=== PATIENT | male | born 1970 | race Caucasian/White ===

== ENCOUNTER → 2017-11-06 | Outpatient (CLI) | payer MEDICAID ==
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
== END ==
LOC: RAD 12:31
PROVIDERS: ATTEND Internal Medicine
DX: M54.40 Lumbago with sciatica, unspecified side (principal); M54.2 Cervicalgia
CPT/HCPCS: 72050; 72110

== ENCOUNTER 2018-03-31 17:59 | Emergency (ER) | payer MEDICAID ==
--- NOTE | 2018-03-31 20:44 | RADIOLOGY REPORT (SQ) ---
EXAM DESCRIPTION: L SPINE WHOLE COMPLETED DATE/TIME: 03/31/2018 8:36 pm REASON FOR STUDY: neck pain/back pain worsening, popping, n/t COMPARISON: 11/06/2017. NUMBER OF VIEWS: Five views including obliques. TECHNIQUE: AP, lateral, oblique, and sacral radiographic images acquired of the lumbar spine. LIMITATIONS: None. FINDINGS: MINERALIZATION: Normal. SEGMENTATION: Normal. No transitional anatomy. ALIGNMENT: Normal. VERTEBRAE: Maintained height. No fracture or worrisome bone lesion. DISCS: Preserved height. No significant osteophytes or end plate irregularity. POSTERIOR ELEMENTS: Pedicles and facets are intact. No pars defect or posterior arch defects. HARDWARE: None in the spine. PARASPINAL SOFT TISSUES: Normal. PELVIS: Intact as visualized. No fractures or worrisome bone lesions. SI joints intact. OTHER: No other significant finding. IMPRESSION: NORMAL 5 VIEW LUMBAR SPINE. TECHNICAL DOCUMENTATION: JOB ID: [id number] [employer]- All Rights Reserved Reading location - IP/workstation name: [email or web address]
--- NOTE | 2018-03-31 21:05 | RADIOLOGY REPORT (SQ) ---
EXAM DESCRIPTION: CT CERVICAL SPINE WITHOUT COMPLETED DATE/TIME: 03/31/2018 8:52 pm REASON FOR STUDY: neck pain/back pain worsening, popping, n/t COMPARISON: None. TECHNIQUE: Axial images acquired through the cervical spine without intravenous contrast. Images re viewed with lung, soft tissue and bone windows. Reconstructed coronal and sagittal MPR images review ed. Images stored on PACS. All CT scanners at this facility use dose modulation, iterative reconstruction, and/or weight based d osing when appropriate to reduce radiation dose to as low as reasonably achievable (ALARA). [facility]: Dose Right [facility]: CareDose [facility]: Dose Right [facility]: Teradose 4D [facility]: Smart [employer] Mobile RADIATION DOSE: CT Rad equipment meets quality standard of care and radiation dose reduction techniq ues were employed. CTDIvol: 18.1 mGy. DLP: 434 mGy-cm. mGy. LIMITATIONS: None. FINDINGS: ALIGNMENT: Anatomic. MINERALIZATION: Normal. VERTEBRAL BODIES: No fractures or dislocation. DISCS: No significant disc disease. FACETS, LATERAL MASSES, POSTERIOR ELEMENTS: No fractures. No dislocation. No acute findings. HARDWARE: None in the spine. VISUALIZED RIBS: No fractures. LUNG APICES AND SOFT TISSUES: No significant or acute findings. OTHER: No other significant finding. IMPRESSION: NO ACUTE OR SIGNIFICANT FINDINGS IN THE CERVICAL SPINE. TECHNICAL DOCUMENTATION: JOB ID: [id number] Quality ID # [id number]: Final reports with documentation of one or more dose reduction techniques (e.g., Au tomated exposure control, adjustment of the mA and/or kV according to patient size, use of iterative reconstruction technique) 2010 [employer]- All Rights Reserved Reading location - IP/workstation name: [email or web address]
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
[2018-03-31 21:47] LABS: ABSOLUTE BASOPHILS # (AUTO) 0.1 10^3/uL (0.0-0.2); ABSOLUTE EOSINOPHILS # (AUTO) 0.3 10^3/uL (0.0-0.6); ABSOLUTE LYMPHOCYTES (AUTO) 1.6 10^3/uL (0.5-4.7); ABSOLUTE MONOCYTES (AUTO) 0.4 10^3/uL (0.1-1.4); ABSOLUTE NEUT (AUTO) 2.8 10^3/uL (1.7-8.2); BASOPHILS % (AUTO) 1.1 % (0-2); EOSINOPHILS % (AUTO) 5.2 % (0-6); HEMATOCRIT 32.7 % (37.9-51.0); HEMOGLOBIN 11.6 g/dL (13.5-17.0); MEAN CORPUSCULAR HGB CONC 35.5 g/dL (32.0-36.0); MEAN CORPUSCULAR VOLUME 93 fl (80-97); MONOCYTES % (AUTO) 7.6 % (3-13); PLATELET COUNT 209 10^3/uL (150-450); RED BLOOD COUNT 3.52 10^6/uL (4.35-5.55); RED CELL DISTRIBUTION WIDTH 14.5 % (11.5-14.0); SEGMENTED NEUTROPHILS % (AUTO) 55.1 % (42-78); TOTAL CELLS COUNTED % (AUTO) 100 %; WHITE BLOOD COUNT 5.1 10^3/uL (4.0-10.5)
[2018-03-31 22:05] LABS: ANION GAP 11 (5-19); BLOOD UREA NITROGEN 11 mg/dL (7-20); CALCIUM 9.1 mg/dL (8.4-10.2); CARBON DIOXIDE 26 mmol/L (22-30); CHLORIDE 105 mmol/L (98-107); GLUCOSE 81 mg/dL (75-110)
[2018-03-31 22:43] VITALS: BP 138/86
== END 2018-03-31 22:42 | disposition home or self-care (01) ==
LOC: ER 17:59
DX: G89.29 Other chronic pain (principal); M54.5 Low back pain; M54.2 Cervicalgia; R20.0 Anesthesia of skin; R20.2 Paresthesia of skin; I10 Essential (primary) hypertension
CPT/HCPCS: 36415; 72110; 72125; 80048; 85025; 99284

== ENCOUNTER 2018-04-26 19:51 | Emergency (ER) | payer MEDICAID ==
[2018-04-26 20:16] VITALS: BP 143/86
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
== END 2018-04-26 21:31 | disposition home or self-care (01) ==
LOC: ER 19:51
DX: S61.452A Open bite of left hand, initial encounter (principal); S61.451A Open bite of right hand, initial encounter; S51.852A Open bite of left forearm, initial encounter; S51.851A Open bite of right forearm, initial encounter; W54.0XXA Bitten by dog, initial encounter; Y93.89 Activity, other specified; F17.200 Nicotine dependence, unspecified, uncomplicated; I10 Essential (primary) hypertension
CPT/HCPCS: 99283

== ENCOUNTER 2019-05-19 08:33 | Inpatient (IN) | payer MEDICAID ==
[2019-05-19] MEDS ORDERED: NORMAL SALINE 1000 ML 1,000 ML IV ONE ×2 (09:20→11:35)
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
[2019-05-19 09:58] LABS: ALBUMIN 5.1 g/dL (3.5-5.0); ALKALINE PHOSPHATASE 75 U/L (38-126); ASPARTATE AMINO TRANSFERASE 49 U/L (17-59); BILIRUBIN,DIRECT 0.2 mg/dL (0.0-0.4); BILIRUBIN,TOTAL 0.9 mg/dL (0.2-1.3); BLOOD UREA NITROGEN 10 mg/dL (7-20); CALCIUM 9.4 mg/dL (8.4-10.2); CARBON DIOXIDE 24 mmol/L (22-30); CHLORIDE 80 mmol/L (98-107); CREATINE KINASE 174 U/L (55-170); GLUCOSE 141 mg/dL (75-110); POTASSIUM 3.5 mmol/L (3.6-5.0); TOTAL PROTEIN 7.8 g/dL (6.3-8.2)
[2019-05-19 10:02] LABS: ABSOLUTE LYMPHOCYTES (AUTO) 0.7 10^3/uL (0.5-4.7); ABSOLUTE MONOCYTES (AUTO) 0.7 10^3/uL (0.1-1.4); ACETAMINOPHEN < 10 ug/mL (10-30); ALCOHOL < 10 mg/dL (NONE DETECTED); BASOPHILS % (AUTO) 0.2 % (0-2); EOSINOPHILS % (AUTO) 0.1 % (0-6); HEMATOCRIT 37.4 % (37.9-51.0); HEMOGLOBIN 14.2 g/dL (13.5-17.0); LYMPHOCYTES % (AUTO) 11.2 % (13-45); MEAN CORPUSCULAR HEMOGLOBIN 32.6 pg (27.0-33.4); MEAN CORPUSCULAR VOLUME 86 fl (80-97); MONOCYTES % (AUTO) 10.3 % (3-13); PLATELET COUNT 293 10^3/uL (150-450); RED BLOOD COUNT 4.37 10^6/uL (4.35-5.55); RED CELL DISTRIBUTION WIDTH 12.8 % (11.5-14.0); SALICYLATE < 1.0 mg/dL (2.0-20.0); SEGMENTED NEUTROPHILS % (AUTO) 78.2 % (42-78); TOTAL CELLS COUNTED % (AUTO) 100 %; WHITE BLOOD COUNT 6.5 10^3/uL (4.0-10.5)
[2019-05-19 10:07] LABS: ANION GAP 16 (5-19)
--- NOTE | 2019-05-19 10:10 | RADIOLOGY REPORT (SQ) ---
EXAM DESCRIPTION: CHEST SINGLE VIEW COMPLETED DATE/TIME: 05/19/2019 10:01 am REASON FOR STUDY: CP AMS COMPARISON: 05/01/2016 NUMBER OF VIEWS: One view. TECHNIQUE: Single frontal radiographic view of the chest acquired. LIMITATIONS: None. FINDINGS: LUNGS AND PLEURA: No opacities, masses or pneumothorax. No pleural effusion. MEDIASTINUM AND HILAR STRUCTURES: No masses. Contour normal. HEART AND VASCULAR STRUCTURES: Heart normal in size. Normal vasculature. BONES: There chronic upper left rib fractures noted. HARDWARE: None in the chest. OTHER: No other significant finding. IMPRESSION: NO SIGNIFICANT RADIOGRAPHIC FINDING IN THE CHEST. TECHNICAL DOCUMENTATION: JOB ID: [id number] [employer]- All Rights Reserved Reading location - IP/workstation name: [email or web address]
--- NOTE | 2019-05-19 10:29 | RADIOLOGY REPORT (SQ) ---
EXAM DESCRIPTION: CT HEAD WITHOUT COMPLETED DATE/TIME: 05/19/2019 10:16 am REASON FOR STUDY: CP AMS COMPARISON: 12/16/2015 TECHNIQUE: Axial images acquired through the brain without intravenous contrast. Images reviewed wi th bone, brain and subdural windows. Additional sagittal and coronal reconstructions were generated. Images stored on PACS. All CT scanners at this facility use dose modulation, iterative reconstruction, and/or weight based d osing when appropriate to reduce radiation dose to as low as reasonably achievable (ALARA). [facility]: Dose Right [facility]: CareDose [facility]: Dose Right [facility]: Teradose 4D [facility]: CelluComp RADIATION DOSE: CT Rad equipment meets quality standard of care and radiation dose reduction techniq ues were employed. CTDIvol: 53.2 mGy. DLP: 1017 mGy-cm. mGy. LIMITATIONS: None. FINDINGS: VENTRICLES: Normal size and contour. CEREBRUM: No masses. No hemorrhage. No midline shift. No evidence for acute infarction. Normal gra y/white matter differentiation. No areas of low density in the white matter. CEREBELLUM: No masses. No hemorrhage. No alteration of density. No evidence for acute infarction. EXTRAAXIAL SPACES: No fluid collections. No masses. ORBITS AND GLOBE: No intra- or extraconal masses. Normal contour of globe without masses. CALVARIUM: No fracture. PARANASAL SINUSES: No fluid or mucosal thickening. SOFT TISSUES: No mass or hematoma. OTHER: No other significant finding. IMPRESSION: NORMAL BRAIN CT WITHOUT CONTRAST. EVIDENCE OF ACUTE STROKE: NO. COMMENT: Quality ID # [id number]: Final reports with documentation of one or more dose reduction techniques (e.g., Automated exposure control, adjustment of the mA and/or kV according to patient size, use of iterative reconstruction technique) TECHNICAL DOCUMENTATION: JOB ID: [id number] [employer] All Rights Reserved Reading location - IP/workstation name: [email or web address]
[2019-05-19 10:37] LABS: APPEARANCE,URINE CLEAR; BILIRUBIN,URINE NEGATIVE (NEGATIVE); COLOR,URINE STRAW; GLUCOSE, URINE 150 mg/dL (NEGATIVE); KETONES,URINE NEGATIVE (NEGATIVE); LEUKOCYTE ESTERASE,URINE NEGATIVE (NEGATIVE); NITRITE,URINE NEGATIVE (NEGATIVE); PROTEIN,URINE NEGATIVE (NEGATIVE); URINE SPECIFIC GRAVITY 1.004; UROBILINOGEN,URINE NEGATIVE mg/dL (<2.0)
[2019-05-19 10:55] LABS: URINE AMPHETAMINES SCREEN NEGATIVE; URINE BARBITURATES SCREEN NEGATIVE; URINE BENZODIAZEPINES SCREEN UNCONFIRMED POSITIVE; URINE COCAINE SCREEN NEGATIVE; URINE MARIJUANA (THC) SCREEN NEGATIVE; URINE METHADONE SCREEN NEGATIVE; URINE PHENCYCLIDINE SCREEN NEGATIVE
[2019-05-19] MEDS ORDERED: POTASSIUM CHLORIDE 10 MEQ CAPSULE.ER PO ONE (11:39)
[2019-05-19] MEDS ORDERED: LORAZEPAM INJ 2 MG/1 ML VIAL IV ONE (11:41)
[2019-05-19] MEDS ORDERED: MAG HYDROX/AL HYDROX/SIMETH SUSP 30 ML UDCUP PO PRN (12:20)
[2019-05-19] MEDS ORDERED: ONDANSETRON HCL INJ/PF 4 MG/2 ML SDV IV PRN (12:20)
[2019-05-19] MEDS ORDERED: MAGNESIUM HYDROXIDE SUSP 30 ML UDCUP PO PRN (12:20)
[2019-05-19] MEDS ORDERED: IPRATROPIUM/ALBUTEROL 0.5-2.5 MG/3 ML AMPUL NEB PRN (12:20)
[2019-05-19] MEDS ORDERED: PROMETHAZINE HCL INJ 25 MG/1 ML VIAL IV PRN (12:20)
[2019-05-19] MEDS ORDERED: ACETAMINOPHEN 325 MG TABLET PO PRN (12:20)
[2019-05-19] MEDS ORDERED: (PENDING PHARMACY ID) (Oxycodone Hcl [Oxycodone Hcl 10 Mg Tablet] 5 MG) PO PRN (15:33)
[2019-05-19] MEDS ORDERED: OXYCODONE-ACETAMINOPHEN 5-325 MG TABLET PO PRN (15:37)
[2019-05-19 16:35] LABS: ANION GAP 11 (5-19); BLOOD UREA NITROGEN 8 mg/dL (7-20); CALCIUM 8.8 mg/dL (8.4-10.2); CARBON DIOXIDE 24 mmol/L (22-30); CHLORIDE 92 mmol/L (98-107); GLUCOSE 112 mg/dL (75-110); POTASSIUM 3.4 mmol/L (3.6-5.0)
[2019-05-19] MEDS ORDERED: HYDRALAZINE HCL INJ/PF 20 MG/1 ML SDV IV PRN (17:51)
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
[2019-05-19] MEDS ORDERED: NORMAL SALINE 1000 ML 1,000 ML with POTASSIUM CHLORIDE 20 MEQ, MAGNESIUM SULFATE 8 MEQ,... IV SCH ×5 (18:00)
[2019-05-19] MEDS: HEPARIN SOD (PORCINE) 5,000 UNIT/ML 1 ML VIAL SUBCUT SCH ×2 (18:11→22:25)
[2019-05-19] MEDS: SERTRALINE HCL 50 MG TABLET PO SCH (18:11)
[2019-05-19] MEDS: DIAZEPAM 5 MG TABLET PO SCH ×2 (18:11→23:55)
[2019-05-19 20:25] LABS: ANION GAP 12 (5-19); BLOOD UREA NITROGEN 7 mg/dL (7-20); CALCIUM 8.9 mg/dL (8.4-10.2); CARBON DIOXIDE 23 mmol/L (22-30); CHLORIDE 93 mmol/L (98-107); GLUCOSE 91 mg/dL (75-110); POTASSIUM 3.6 mmol/L (3.6-5.0)
--- NOTE | 2019-05-19 20:53 | EKG REPORT ---
SEVERITY:- NORMAL ECG - SINUS RHYTHM : Confirmed by: Simran Huston MD 19-May-2019 20:52:44
[2019-05-19] MEDS: FAMOTIDINE 20 MG TABLET PO SCH (22:25)
[2019-05-19] MEDS: LORAZEPAM INJ 2 MG/1 ML VIAL IV PRN (22:25)
[2019-05-20 01:30] LABS: ANION GAP 9 (5-19); BLOOD UREA NITROGEN 10 mg/dL (7-20); CALCIUM 8.3 mg/dL (8.4-10.2); CARBON DIOXIDE 21 mmol/L (22-30); CHLORIDE 99 mmol/L (98-107); GLUCOSE 103 mg/dL (75-110); POTASSIUM 3.7 mmol/L (3.6-5.0)
[2019-05-20 05:58] LABS: ANION GAP 9 (5-19); BLOOD UREA NITROGEN 10 mg/dL (7-20); CALCIUM 8.5 mg/dL (8.4-10.2); CARBON DIOXIDE 22 mmol/L (22-30); CHLORIDE 99 mmol/L (98-107); GLUCOSE 100 mg/dL (75-110); POTASSIUM 3.8 mmol/L (3.6-5.0)
[2019-05-20 06:11] LABS: HEMATOCRIT 32.7 % (37.9-51.0); HEMOGLOBIN 12.3 g/dL (13.5-17.0); MEAN CORPUSCULAR HEMOGLOBIN 32.5 pg (27.0-33.4); MEAN CORPUSCULAR HGB CONC 37.6 g/dL (32.0-36.0); MEAN CORPUSCULAR VOLUME 86 fl (80-97); PLATELET COUNT 250 10^3/uL (150-450); RED BLOOD COUNT 3.79 10^6/uL (4.35-5.55); RED CELL DISTRIBUTION WIDTH 12.8 % (11.5-14.0)
[2019-05-20] MEDS: HEPARIN SOD (PORCINE) 5,000 UNIT/ML 1 ML VIAL SUBCUT SCH ×3 (06:23→21:35)
[2019-05-20] MEDS: DIAZEPAM 5 MG TABLET PO SCH ×3 (06:23→17:19)
[2019-05-20] MEDS: SERTRALINE HCL 50 MG TABLET PO SCH (09:27)
[2019-05-20] MEDS: NICOTINE 14 MG/24 HR PATCH.TD24 TD SCH (09:27)
[2019-05-20] MEDS: DOCUSATE SODIUM 100 MG CAPSULE PO SCH (09:27)
[2019-05-20] MEDS: HYDROCHLOROTHIAZIDE 25 MG TABLET PO SCH (09:27)
[2019-05-20] MEDS: FAMOTIDINE 20 MG TABLET PO SCH ×2 (09:28→21:36)
[2019-05-20] MEDS: LORAZEPAM INJ 2 MG/1 ML VIAL IV PRN ×2 (09:32→21:36)
[2019-05-20] MEDS ORDERED: (PENDING PHARMACY ID) (Lisinopril/Hydrochlorothiazide [Zestoretic 20-25 Mg Tablet] 1 TAB) PO SCH (10:00)
[2019-05-20] MEDS ORDERED: LISINOPRIL 10 MG TABLET PO SCH (10:00)
[2019-05-20] MEDS: THIAMINE HCL 100 MG TABLET PO SCH (11:20)
--- NOTE | 2019-05-20 12:04 | PDOC PROGRESS REPORT ---
Subjective Progress Note for:: 05/20/19 Reason For Visit: JOSE ROBERTO TRAVIS is a 48 year old male with a past medical history of alcoholism, opiate dependent chronic pain, remote TBI who presented to the emergency department today with a complaint of several days of altered mental status and intermittent chest pain without associated symptoms, aggravating or alleviating factors. During my assessment, the patient is fatigued, forgetful and unable to provide any additional past medical history; frequently references his as a resource, however, she is not present at this time. Evaluation in the emergency department revealed Hypertension (144/103) but otherwise normal vital signs, unremarkable CBC, urinalysis, and toxicology. However chemistry reveals hyponatremia (NA 120.3), mild hypokalemia (3.5), benig n head CT, chest x-ray, and NSR by EKG. Patient has received 2 L NS boluses and is referred to the hospitalist service for the admission and management of the above stated complaints and findings. 05/20/2019. No acute events overnight. Patient alert oriented x3, cooperative with physical examination, denies any anxiety, auditory or visual hallucination. Denies any fever, swelling, vomiting, chest pain, diarrhea, constipation or any urinary symptoms. Physical Exam Vital Signs: Temp Pulse Resp BP Pulse Ox 98.1 F 58 L 17 113/73 100 05/20/19 11:00 05/20/19 11:00 05/20/19 11:00 05/20/19 11:00 05/20/19 11:00 Intake & Output 05/19/19 05/20/19 05/21/19 06:59 06:59 06:59 Intake Total 3583 Balance 3583 Weight 70.4 kg General appearance: PRESENT: no acute distress, well-developed, well-nourished Head exam: PRESENT: atraumatic, normocephalic Eye exam: PRESENT: conjunctiva pink, EOMI, PERRLA. ABSENT: scleral icterus Ear exam: PRESENT: normal external ear exam Mouth exam: PRESENT: moist, tongue midline Neck exam: ABSENT: carotid bruit, JVD, lymphadenopathy, thyromegaly Respiratory exam: PRESENT: clear to auscultation ronnie. ABSENT: rales, rhonchi, wheezes Cardiovascular exam: PRESENT: RRR. ABSENT: diastolic murmur, rubs, systolic murmur Pulses: PRESENT: normal dorsalis pedis pul Vascular exam: PRESENT: normal capillary refill GI/Abdominal exam: PRESENT: normal bowel sounds, soft. ABSENT: distended, guarding, mass, organolmegaly, rebound, tenderness Rectal exam: PRESENT: deferred Extremities exam: PRESENT: full ROM. ABSENT: calf tenderness, clubbing, pedal edema Neurological exam: PRESENT: alert, awake, oriented to person, oriented to place, oriented to time, oriented to situation, CN II-XII grossly intact. ABSENT: motor sensory deficit Psychiatric exam: PRESENT: appropriate affect, normal mood. ABSENT: homicidal ideation, suicidal ideation Skin exam: PRESENT: dry, intact, warm. ABSENT: cyanosis, rash Results Laboratory Results: 05/20/19 03:15 05/20/19 03:15 05/19/19 05/19/19 05/19/19 09:15 16:03 20:00 WBC RBC Hgb Hct MCV MCH MCHC RDW Plt Count Sodium 127.0 L 127.5 L Potassium 3.4 L 3.6 Chloride 92 L 93 L Carbon Dioxide 24 23 Anion Gap 11 12 BUN 8 7 Creatinine 0.89 1.08 Est GFR ( Amer) > 60 > 60 Glucose 112 H 91 Calcium 8.8 8.9 Magnesium 2.0 05/20/19 05/20/19 05/20/19 00:52 03:15 03:15 WBC 6.0 RBC 3.79 L Hgb 12.3 L Hct 32.7 L MCV 86 MCH 32.5 MCHC 37.6 H RDW 12.8 Plt Count 250 Sodium 128.6 L 129.8 L Potassium 3.7 3.8 Chloride 99 99 Carbon Dioxide 21 L 22 Anion Gap 9 9 BUN 10 10 Creatinine 1.03 0.95 Est GFR ( Amer) > 60 > 60 Glucose 103 100 Calcium 8.3 L 8.5 Magnesium 05/19/19 05/19/19 05/19/19 09:15 09:15 16:03 Creatine Kinase 174 H Troponin I < 0.012 < 0.012 05/19/19 20:00 Creatine Kinase Troponin I < 0.012 Impressions: Chest X-Ray 05/19/19 09:19 IMPRESSION: NO SIGNIFICANT RADIOGRAPHIC FINDING IN THE CHEST. Head CT 05/19/19 09:19 IMPRESSION: NORMAL BRAIN CT WITHOUT CONTRAST. EVIDENCE OF ACUTE STROKE: NO. Assessment and Plan - Diagnosis (1) Acute metabolic encephalopathy Is this a current diagnosis for this admission?: Yes Plan: Resolved. Due to EtOH abuse. Alert oriented x4. Received IV banana bag. Monitor for DT. Continue thiamine and folic acid. (2) Hyponatremia Is this a current diagnosis for this admission?: Yes Plan: Improving. Sodium 129 today. Likely secondary to excessive EtOH intake. Sodium on admission is 102.3. No prior history of chronic hyponatremia. Patient was provided a 2 L normal saline bolus by the ED provider. Serum sodium every 8. Seizure and fall precautions. (3) Chest pain Is this a current diagnosis for this admission?: Yes Plan: Most likely noncardiac. Could be related to chronic gastritis. Resolved. Troponins negative x3. EKG no changes. Continue PPIs. Advised on using EtOH intake. (4) Hypokalemia Is this a current diagnosis for this admission?: Yes Plan: Likely due to low p.o. intake. No acute EKG changes. Resolved. Potassium level tomorrow. Magnesium level WNL. (5) Opiate dependence Is this a current diagnosis for this admission?: Yes Plan: Continue supportive measures. Monitor for withdrawal. Restart home meds. (6) Tobacco dependence Is this a current diagnosis for this admission?: Yes Plan: Smoking cessation encouraged. Nicotine or placement therapies provided. (7) ETOH abuse Is this a current diagnosis for this admission?: Yes Plan: As per #1.
[2019-05-20] MEDS: FOLIC ACID/VITAMIN B COMP W-C CAPSULE PO SCH (17:19)
[2019-05-20] MEDS: OXYCODONE HCL IR 5 MG TABLET PO PRN (21:36)
[2019-05-21] MEDS: DIAZEPAM 5 MG TABLET PO SCH ×4 (00:52→18:38)
[2019-05-21] MEDS: HEPARIN SOD (PORCINE) 5,000 UNIT/ML 1 ML VIAL SUBCUT SCH ×3 (06:34→21:20)
[2019-05-21] MEDS: NORMAL SALINE 1000 ML 1,000 ML IV PRN ×2 (07:31→16:27)
[2019-05-21 07:45] LABS: HEMATOCRIT 33.6 % (37.9-51.0); HEMOGLOBIN 12.7 g/dL (13.5-17.0); MEAN CORPUSCULAR HEMOGLOBIN 32.8 pg (27.0-33.4); MEAN CORPUSCULAR VOLUME 87 fl (80-97); PLATELET COUNT 252 10^3/uL (150-450); RED BLOOD COUNT 3.87 10^6/uL (4.35-5.55); RED CELL DISTRIBUTION WIDTH 12.6 % (11.5-14.0); WHITE BLOOD COUNT 7.4 10^3/uL (4.0-10.5)
[2019-05-21 08:11] LABS: MEAN CORPUSCULAR HGB CONC 37.8 g/dL (32.0-36.0)
[2019-05-21] MEDS: NICOTINE 14 MG/24 HR PATCH.TD24 TD SCH (09:29)
[2019-05-21] MEDS: DOCUSATE SODIUM 100 MG CAPSULE PO SCH (09:47)
[2019-05-21] MEDS: LISINOPRIL 10 MG TABLET PO SCH (09:48)
[2019-05-21] MEDS: SERTRALINE HCL 50 MG TABLET PO SCH (09:48)
[2019-05-21] MEDS: LORAZEPAM INJ 2 MG/1 ML VIAL IV PRN ×2 (09:49→21:20)
[2019-05-21] MEDS: FAMOTIDINE 20 MG TABLET PO SCH ×2 (09:49→21:20)
[2019-05-21] MEDS: HYDROCHLOROTHIAZIDE 25 MG TABLET PO SCH (09:49)
[2019-05-21] MEDS: THIAMINE HCL 100 MG TABLET PO SCH (09:49)
[2019-05-21] MEDS: OXYCODONE HCL IR 5 MG TABLET PO PRN (15:02)
[2019-05-21] MEDS: FOLIC ACID/VITAMIN B COMP W-C CAPSULE PO SCH (15:03)
--- NOTE | 2019-05-21 15:18 | PDOC PROGRESS REPORT ---
Subjective Progress Note for:: 05/21/19 Subjective:: JOSE ROBERTO TRAVIS is a 48 year old male with a past medical history of alcoholism, opiate dependent chronic pain, remote TBI who presented to the emergency department today with a complaint of several days of altered mental status and intermittent chest pain without associated symptoms, aggravating or alleviating factors. During my assessment, the patient is fatigued, forgetful and unable to provide any additional past medical history; frequently references his as a resource, however, she is not present at this time. Evaluation in the emergency department revealed Hypertension (144/103) but otherwise normal vital signs, unremarkable CBC, urinalysis, and toxicology. However chemistry reveals hyponatremia (NA 120.3), mild hypokalemia (3.5), benign head CT, chest x-ray, and NSR by EKG. Patient has received 2 L NS boluses and is referred to the hospitalist service for the admission and management of the above stated complaints and findings. 05/20/2019. No acute events overnight. Patient alert oriented x3, cooperative with physical examination, denies any anxiety, auditory or visual hallucination. Denies any fever, swelling, vomiting, chest pain, diarrhea, constipation or any urinary symptoms. 05/21/2017. No acute events overnight. Alert oriented x3, cooperative with examination. Denies any visual or auditory hallucination. Denies any anxiety. Denies any fever, chills, nausea, vomiting, diarrhea, constipation or any urinary symptoms. Sodium level not optimized. Possible DC tomorrow. Reason For Visit: AMS, HYPONATREMIA, ETOH DEPENDENCE Physical Exam Vital Signs: Temp Pulse Resp BP Pulse Ox 98.2 F 84 20 133/80 H 96 05/21/19 12:00 05/21/19 12:00 05/21/19 12:00 05/21/19 12:00 05/21/19 08:24 Intake & Output 05/20/19 05/21/19 05/22/19 06:59 06:59 06:59 Intake Total 3583 1420 120 Output Total 0 Balance 3583 1420 120 Weight 70.4 kg 69.1 kg General appearance: PRESENT: no acute distress, well-developed, well-nourished Head exam: PRESENT: atraumatic, normocephalic Eye exam: PRESENT: conjunctiva pink, EOMI, PERRLA. ABSENT: scleral icterus Ear exam: PRESENT: normal external ear exam Mouth exam: PRESENT: moist, tongue midline Neck exam: ABSENT: carotid bruit, JVD, lymphadenopathy, thyromegaly Respiratory exam: PRESENT: clear to auscultation ronnie. ABSENT: rales, rhonchi, wheezes Cardiovascular exam: PRESENT: RRR. ABSENT: diastolic murmur, rubs, systolic murmur Pulses: PRESENT: normal dorsalis pedis pul Vascular exam: PRESENT: normal capillary refill GI/Abdominal exam: PRESENT: normal bowel sounds, soft. ABSENT: distended, guarding, mass, organolmegaly, rebound, tenderness Rectal exam: PRESENT: deferred Extremities exam: PRESENT: full ROM. ABSENT: calf tenderness, clubbing, pedal edema Neurological exam: PRESENT: alert, awake, oriented to person, oriented to place, oriented to time, oriented to situation, CN II-XII grossly intact. ABSENT: motor sensory deficit Psychiatric exam: PRESENT: appropriate affect, normal mood. ABSENT: homicidal ideation, suicidal ideation Skin exam: PRESENT: dry, intact, warm. ABSENT: cyanosis, rash Results Laboratory Results: 05/21/19 06:55 05/21/19 14:28 05/20/19 05/20/19 05/21/19 14:34 21:37 06:55 WBC 7.4 RBC 3.87 L Hgb 12.7 L Hct 33.6 L MCV 87 MCH 32.8 MCHC 37.8 H RDW 12.6 Plt Count 252 Sodium 128.6 L 128.6 L 05/21/19 05/21/19 06:55 14:28 WBC RBC Hgb Hct MCV MCH MCHC RDW Plt Count Sodium 127.3 L 129.0 L 05/19/19 05/19/19 05/19/19 09:15 09:15 16:03 Creatine Kinase 174 H Troponin I < 0.012 < 0.012 05/19/19 20:00 Creatine Kinase Troponin I < 0.012 Impressions: Chest X-Ray 05/19/19 09:19 IMPRESSION: NO SIGNIFICANT RADIOGRAPHIC FINDING IN THE CHEST. Head CT 05/19/19 09:19 IMPRESSION: NORMAL BRAIN CT WITHOUT CONTRAST. EVIDENCE OF ACUTE STROKE: NO. Assessment and Plan - Diagnosis (1) Hyponatremia Is this a current diagnosis for this admission?: Yes Plan: Improving. Not optimized. Sodium 129 today. Likely secondary to excessive EtOH intake. Sodium on admission is 102.3. No prior history of chronic hyponatremia. Patient was provided a 2 L normal saline bolus by the ED provider. Start on NS. Sodium level in a.m. If WNL will DC home. Monitor for seizures. (2) Acute metabolic encephalopathy Is this a current diagnosis for this admission?: Yes Plan: Resolved. Due to EtOH abuse. Alert oriented x4. Received IV banana bag. Monitor for DT. Continue thiamine and folic acid. (3) Chest pain Is this a current diagnosis for this admission?: Yes Plan: Resolved. Most likely noncardiac. Could be related to chronic gastritis. Resolved. Troponins negative x3. EKG no changes. Continue PPIs. Advised on using EtOH intake. (4) Hypokalemia Is this a current diagnosis for this admission?: Yes Plan: Resolved. Likely due to low p.o. intake. No acute EKG changes. Potassium level tomorrow. Magnesium level WNL. (5) Opiate dependence Is this a current diagnosis for this admission?: Yes Plan: Continue supportive measures. Monitor for withdrawal. Restart home meds. (6) Tobacco dependence Is this a current diagnosis for this admission?: Yes Plan: Smoking cessation encouraged. Nicotine or placement therapies provided. (7) ETOH abuse Is this a current diagnosis for this admission?: Yes Plan: As per #1.
[2019-05-22] MEDS: DIAZEPAM 5 MG TABLET PO SCH ×3 (00:09→12:25)
[2019-05-22] MEDS: NORMAL SALINE 1000 ML 1,000 ML IV PRN (01:00)
[2019-05-22] MEDS: HEPARIN SOD (PORCINE) 5,000 UNIT/ML 1 ML VIAL SUBCUT SCH (06:00)
[2019-05-22 06:37] LABS: HEMATOCRIT 32.5 % (37.9-51.0); HEMOGLOBIN 12.3 g/dL (13.5-17.0); MEAN CORPUSCULAR HEMOGLOBIN 33.1 pg (27.0-33.4); MEAN CORPUSCULAR VOLUME 88 fl (80-97); PLATELET COUNT 266 10^3/uL (150-450); RED BLOOD COUNT 3.71 10^6/uL (4.35-5.55); RED CELL DISTRIBUTION WIDTH 12.7 % (11.5-14.0); WHITE BLOOD COUNT 7.6 10^3/uL (4.0-10.5)
[2019-05-22 06:53] LABS: ANION GAP 10 (5-19); BLOOD UREA NITROGEN 8 mg/dL (7-20); CALCIUM 8.6 mg/dL (8.4-10.2); CARBON DIOXIDE 24 mmol/L (22-30); CHLORIDE 100 mmol/L (98-107); GLUCOSE 107 mg/dL (75-110); POTASSIUM 3.3 mmol/L (3.6-5.0)
[2019-05-22 07:31] LABS: MEAN CORPUSCULAR HGB CONC 37.8 g/dL (32.0-36.0)
[2019-05-22] MEDS ORDERED: POTASSIUM CHLORIDE 20 MEQ PACKET PO ONE (07:34)
[2019-05-22] MEDS: SERTRALINE HCL 50 MG TABLET PO SCH (09:17)
[2019-05-22] MEDS: THIAMINE HCL 100 MG TABLET PO SCH (09:17)
[2019-05-22] MEDS: LISINOPRIL 10 MG TABLET PO SCH (09:17)
[2019-05-22] MEDS: HYDROCHLOROTHIAZIDE 25 MG TABLET PO SCH (09:17)
[2019-05-22] MEDS: FAMOTIDINE 20 MG TABLET PO SCH (09:18)
[2019-05-22] MEDS: DOCUSATE SODIUM 100 MG CAPSULE PO SCH (09:18)
[2019-05-22] MEDS: NICOTINE 14 MG/24 HR PATCH.TD24 TD SCH (09:19)
[2019-05-22] MEDS: LORAZEPAM INJ 2 MG/1 ML VIAL IV PRN (09:19)
[2019-05-22 14:14] VITALS: BP 137/84
--- NOTE | 2019-05-28 11:34 | PDOC DISCHARGE SUMMARY ---
General - Admit/Disc Date/PCP Admission Date/Primary Care Provider: 05/19/19 11:53 BECK JURADO Discharge Date: 06/01/19 - Discharge Diagnosis (1) Hyponatremia Is this a current diagnosis for this admission?: Yes (2) Acute metabolic encephalopathy Is this a current diagnosis for this admission?: Yes (3) Chest pain Is this a current diagnosis for this admission?: Yes (4) Hypokalemia Is this a current diagnosis for this admission?: Yes (5) Opiate dependence Is this a current diagnosis for this admission?: Yes (6) Tobacco dependence Is this a current diagnosis for this admission?: Yes (7) ETOH abuse Is this a current diagnosis for this admission?: Yes - Additional Information Resuscitation Status: Full Code Discharge Diet: As Tolerated, Regular Discharge Activity: Activity As Tolerated Home Medications: Ibuprofen [Motrin 800 mg Tablet] 800 mg PO Q8HP PRN 05/19/19 Lisinopril/Hydrochlorothiazide [Zestoretic 20-25 mg Tablet] 1 tab PO DAILY 05/19/19 Lorazepam [Ativan 1 mg Tablet] 1 mg PO Q8HP PRN 05/19/19 Oxycodone HCl [Oxycodone HCl 10 MG Tablet] 10 mg PO Q8HP PRN 05/19/19 Sertraline HCl [Zoloft] 100 mg PO DAILY 05/19/19 Lorazepam [Ativan 0.5 mg Tablet] 0.5 mg PO BID #30 tab 05/26/19 Thiamine HCl [Thiamine 100 mg Tablet] 100 mg PO DAILY #30 tablet 05/26/19 History of Present Illness History of Present Illness: JOSE ROBERTO TRAVIS is a 48 year old male with a past medical history of alcoholism, opiate dependent chronic pain, remote TBI who presented to the emergency department today with a complaint of several days of altered mental status and intermittent chest pain without associated symptoms, aggravating or alleviating factors. During my assessment, the patient is fatigued, forgetful and unable to provide any additional past medical history; frequently references his as a resource, however, she is not present at this time. Evaluation in the emergency department revealed Hypertension (144/103) but otherwise normal vital signs, unremarkable CBC, urinalysis, and toxicology. However chemistry reveals hyponatremia (NA 120.3), mild hypokalemia (3.5), lina gn head CT, chest x-ray, and NSR by EKG. Patient has received 2 L NS boluses and is referred to the hospitalist service for the admission and management of the above stated complaints and findings Hospital Course Hospital Course: (1) Hyponatremia Resoled. Likely secondary to excessive EtOH intake and low P.O intake. Sodium on admission is 102.3. No prior history of chronic hyponatremia. Started on NS. Monitored for seizures. (2) Acute metabolic encephalopathy Resolved. Due to EtOH abuse. Alert oriented x4. Received IV banana bag. Monitor for DT. Started on thiamine and folic acid. (3) Chest pain Resolved. Most likely noncardiac. Could be related to chronic gastritis. Resolved. Troponins negative x3. EKG no changes. Started on PPIs. Advised on using EtOH intake. (4) Hypokalemia Resolved. Likely due to low p.o. intake. No acute EKG changes. Magnesium level WNL. (5) Opiate dependence Continue supportive measures. Monitor for withdrawal. Restart home meds. (6) Tobacco dependence Smoking cessation encouraged. Nicotine or placement therapies provided. (7) ETOH abuse As per #1. Physical Exam Vital Signs: Temp Pulse Resp BP Pulse Ox 98.7 F 87 16 137/84 H 97 05/22/19 14:06 05/22/19 14:06 05/22/19 14:06 05/22/19 14:06 05/22/19 14:06 General appearance: PRESENT: no acute distress, well-developed, well-nourished Head exam: PRESENT: atraumatic, normocephalic Eye exam: PRESENT: conjunctiva pink, EOMI, PERRLA. ABSENT: scleral icterus Ear exam: PRESENT: normal external ear exam Mouth exam: PRESENT: moist, tongue midline Neck exam: ABSENT: carotid bruit, JVD, lymphadenopathy, thyromegaly Respiratory exam: PRESENT: clear to auscultation ronnie. ABSENT: rales, rhonchi, wheezes Cardiovascular exam: PRESENT: RRR. ABSENT: diastolic murmur, rubs, systolic murmur Pulses: PRESENT: normal dorsalis pedis pul Vascular exam: PRESENT: normal capillary refill GI/Abdominal exam: PRESENT: normal bowel sounds, soft. ABSENT: distended, guarding, mass, organolmegaly, rebound, tenderness Rectal exam: PRESENT: deferred Extremities exam: PRESENT: full ROM. ABSENT: calf tenderness, clubbing, pedal edema Neurological exam: PRESENT: alert, awake, oriented to person, oriented to place, oriented to time, oriented to situation, CN II-XII grossly intact. ABSENT: motor sensory deficit Psychiatric exam: PRESENT: appropriate affect, normal mood. ABSENT: homicidal ideation, suicidal ideation Skin exam: PRESENT: dry, intact, warm. ABSENT: cyanosis, rash Results Laboratory Results: 05/22/19 05:55 05/22/19 12:07 05/19/19 05/19/19 05/19/19 09:15 09:15 16:03 Creatine Kinase 174 H Troponin I < 0.012 < 0.012 05/19/19 20:00 Creatine Kinase Troponin I < 0.012 Impressions: Chest X-Ray 05/19/19 09:19 IMPRESSION: NO SIGNIFICANT RADIOGRAPHIC FINDING IN THE CHEST. Head CT 05/19/19 09:19 IMPRESSION: NORMAL BRAIN CT WITHOUT CONTRAST. EVIDENCE OF ACUTE STROKE: NO. Qualifiers - * PATIENT BEING DISCHARGED WITH ANY OF THE FOLLOWING DIAGNOSIS: No VTE patient discharged on overlapping Therapy?: No Acute Heart Failure - Is this a Heart Failure Patient?: No
== END 2019-05-22 15:01 | disposition home or self-care (01) | DRG 640 ==
LOC: ER 08:33 → OBSVTOIN 11:53 → EH 11:53 → 4S 15:14
PROVIDERS: ADMIT Internal Medicine; ATTEND Internal Medicine
DX: E87.1 Hypo-osmolality and hyponatremia (principal); G93.41 Metabolic encephalopathy; F11.20 Opioid dependence, uncomplicated; F10.20 Alcohol dependence, uncomplicated; R07.9 Chest pain, unspecified; G89.4 Chronic pain syndrome; E78.00 Pure hypercholesterolemia, unspecified; I10 Essential (primary) hypertension; F17.210 Nicotine dependence, cigarettes, uncomplicated; E87.6 Hypokalemia; T40.2X5A Adverse effect of other opioids, initial encounter; Y90.0 Blood alcohol level of less than 20 mg/100 ml; Y92.9 Unspecified place or not applicable; Z87.820 Personal history of traumatic brain injury
CPT/HCPCS: 36415; 70450; 71045; 80048; 80053; 80307; 81001; 82140; 82550; 83735; 84132; 84295; 84484; 85025; 85027; 93005; 93010; 96360; 99285; J1644; J2060; J3411; J3475; J3480; J3490; J7030

== ENCOUNTER 2019-05-26 18:18 | Emergency (ER) | payer MEDICAID ==
--- NOTE | 2019-05-26 18:37 | EKG REPORT ---
SEVERITY:- ABNORMAL ECG - SINUS RHYTHM LEFT VENTRICULAR HYPERTROPHY : Confirmed by: Palmer Mehta MD 26-May-2019 18:36:36
--- NOTE | 2019-05-26 18:45 | ER Document Report ---
ED Medical Screen (RME) - General Chief Complaint: Altered Mental Status Stated Complaint: CONFUSION Time Seen by Provider: 05/26/19 18:38 Primary Care Provider: BECK JURADO MD [Primary Care Provider] - Follow up as needed Mode of Arrival: Ambulatory Information source: Patient, Relative Notes: 48-year-old male presents with altered mental status that started yesterday afternoon worsened last night. reports patient was admitted to the hospital last week for same symptoms with very low sodium. She reports she did have an appoint with Dr. Jurado later this week but was worried to wait that long. Patient is very calm answers questions but is confused to time. reports patient still drinks EtOH but not as much. Unaware of last EtOH. No other complaints such as fever vomiting diarrhea. I have greeted and performed a rapid initial assessment of this patient. A comprehensive ED assessment and evaluation of the patient, analysis of test res ults and completion of the medical decision making process will be conducted by additional ED providers. Dictation of this chart was performed using voice recognition software; therefore, there may be some unintended grammatical errors. TRAVEL OUTSIDE OF THE [place] IN LAST 30 DAYS: No - Related Data Allergies/Adverse Reactions: No Known Drug Allergies Allergy (Verified 05/26/19 18:22) Past Medical History - Social History Frequency of alcohol use: Occasional Drug Abuse: None - Past Medical History Cardiac Medical History: Reports: Hx Hypercholesterolemia, Hx Hypertension Denies: Hx Coronary Artery Disease, Hx Heart Attack Neurological Medical History: Reports: Hx Seizures - Alcohol withdrawal Renal/ Medical History: Denies: Hx Peritoneal Dialysis Psychiatric Medical History: Reports: Hx Anxiety, Hx Depression Traumatic Medical History: Reports: Hx Traumatic Brain Injury - Immunizations Hx Diphtheria, Pertussis, Tetanus Vaccination: No Physical Exam - Vital signs Vitals: Temp Pulse Resp BP Pulse Ox 98.2 F 90 18 172/96 H 97 05/26/19 18:28 05/26/19 18:28 05/26/19 18:28 05/26/19 18:28 05/26/19 18:28 Course - Vital Signs Vital signs: Temp Pulse Resp BP Pulse Ox 98.2 F 90 18 172/96 H 97 05/26/19 18:28 05/26/19 18:28 05/26/19 18:28 05/26/19 18:28 05/26/19 18:28 Doctor's Discharge - Discharge Referrals: BECK JURADO MD [Primary Care Provider] - Follow up as needed
[2019-05-26 19:10] LABS: ABSOLUTE LYMPHOCYTES (AUTO) 1.2 10^3/uL (0.5-4.7); ABSOLUTE MONOCYTES (AUTO) 0.5 10^3/uL (0.1-1.4); ABSOLUTE NEUT (AUTO) 6.3 10^3/uL (1.7-8.2); BASOPHILS % (AUTO) 0.4 % (0-2); EOSINOPHILS % (AUTO) 0.6 % (0-6); HEMATOCRIT 38.7 % (37.9-51.0); HEMOGLOBIN 14.2 g/dL (13.5-17.0); LYMPHOCYTES % (AUTO) 14.8 % (13-45); MEAN CORPUSCULAR HGB CONC 36.8 g/dL (32.0-36.0); MEAN CORPUSCULAR VOLUME 90 fl (80-97); MONOCYTES % (AUTO) 6.4 % (3-13); PLATELET COUNT 362 10^3/uL (150-450); RED BLOOD COUNT 4.31 10^6/uL (4.35-5.55); RED CELL DISTRIBUTION WIDTH 13.1 % (11.5-14.0); SEGMENTED NEUTROPHILS % (AUTO) 77.8 % (42-78); TOTAL CELLS COUNTED % (AUTO) 100 %; WHITE BLOOD COUNT 8.1 10^3/uL (4.0-10.5)
[2019-05-26 19:35] LABS: ALBUMIN 4.8 g/dL (3.5-5.0); ALKALINE PHOSPHATASE 77 U/L (38-126); ANION GAP 14 (5-19); ASPARTATE AMINO TRANSFERASE 30 U/L (17-59); BILIRUBIN,DIRECT 0.2 mg/dL (0.0-0.4); BILIRUBIN,TOTAL 0.8 mg/dL (0.2-1.3); BLOOD UREA NITROGEN 8 mg/dL (7-20); CALCIUM 9.7 mg/dL (8.4-10.2); CARBON DIOXIDE 25 mmol/L (22-30); CHLORIDE 97 mmol/L (98-107); GLUCOSE 119 mg/dL (75-110); POTASSIUM 3.4 mmol/L (3.6-5.0); TOTAL PROTEIN 7.3 g/dL (6.3-8.2)
[2019-05-26 19:37] LABS: ALCOHOL < 10 mg/dL (NONE DETECTED)
[2019-05-26] MEDS ORDERED: THIAMINE HCL 100 MG, FOLIC ACID 1 MG in NORMAL SALINE 250 ML IV ONE (19:55)
[2019-05-26] MEDS ORDERED: THIAMINE HCL 100 MG in NORMAL SALINE 50 ML IV ONE (19:55)
[2019-05-26] MEDS ORDERED: LORAZEPAM 0.5 MG TABLET PO ONE (19:57)
--- NOTE | 2019-05-26 22:14 | ER Document Report ---
ED General - General Chief Complaint: Altered Mental Status Stated Complaint: CONFUSION Time Seen by Provider: 05/26/19 18:38 Primary Care Provider: BECK JURADO MD [Primary Care Provider] - Follow up as needed Mode of Arrival: Ambulatory TRAVEL OUTSIDE OF THE [place] IN LAST 30 DAYS: No - HPI Notes: Patient is brought in by for confusion. states patient used to be an alcoholic but has not been now for several years he will only occasionally have a drink of alcohol. She states however for the last 2 to 3 days he has been confused asking questions repeatedly and not being oriented. She states he had a similar event 2 to 3 weeks ago when his sodium was low and he had to be admitted to the hospital. No recent fevers or trauma. Patient states that he does feel confused but otherwise has no complaints. There is no shortness of breath or pain anywhere. No vomiting or diarrhea. Symptoms have been mild to moderate. They have been constant. Nothing appears to make them better or worse. Patient does usually take chronic Ativan and has been out of this for 3 days now. No known radiation of the symptoms. - Related Data Allergies/Adverse Reactions: No Known Drug Allergies Allergy (Verified 05/26/19 18:22) Past Medical History - General Information source: Patient, Relative - Social History Smoking Status: Current Every Day Smoker Frequency of alcohol use: Occasional Drug Abuse: None Family History: Reviewed & Not Pertinent Patient has suicidal ideation: No Patient has homicidal ideation: No - Past Medical History Cardiac Medical History: Reports: Hx Hypercholesterolemia, Hx Hypertension Denies: Hx Coronary Artery Disease, Hx Heart Attack Neurological Medical History: Reports: Hx Seizures - Alcohol withdrawal Renal/ Medical History: Denies: Hx Peritoneal Dialysis Psychiatric Medical History: Reports: Hx Anxiety, Hx Depression Traumatic Medical History: Reports: Hx Traumatic Brain Injury - Immunizations Hx Diphtheria, Pertussis, Tetanus Vaccination: No Review of Systems - Review of Systems Constitutional: Malaise. denies: Chills, Fever Cardiovascular: denies: Chest pain, Palpitations Respiratory: denies: Cough, Short of breath Gastrointestinal: denies: Abdominal pain -: Yes All other systems reviewed and negative Physical Exam - Vital signs Vitals: Pulse Resp BP Pulse Ox 69 20 137/85 H 100 05/26/19 18:25 05/26/19 18:25 05/26/19 18:25 05/26/19 18:25 Interpretation: Normal - General General appearance: Appears well, Alert - HEENT Head: Normocephalic, Atraumatic Eyes: Normal Pupils: PERRL - Respiratory Respiratory status: No respiratory distress Chest status: Nontender Breath sounds: Normal Chest palpation: Normal - Cardiovascular Rhythm: Regular Heart sounds: Normal auscultation Murmur: No - Abdominal Inspection: Normal Distension: No distension Bowel sounds: Normal Tenderness: Nontender Organomegaly: No organomegaly - Back Back: Normal, Nontender - Extremities General upper extremity: Normal inspection, Nontender, Normal color, Normal ROM, Normal temperature General lower extremity: Normal inspection, Nontender, Normal color, Normal ROM, Normal temperature, Normal weight bearing. No: Wendi's sign - Neurological Neuro grossly intact: Yes Cognition: Confused Orientation: Disoriented to time [place] Coma Scale Eye Opening: Spontaneous [place] Coma Scale Verbal: Confused Elizabeth Coma Scale Motor: Obeys Commands Elizabeth Coma Scale Total: 14 Speech: Normal Cranial nerves: Normal Cerebellar coordination: Normal. No: Gait ataxia Motor strength normal: LUE, RUE, LLE, RLE Additional motor exam normals: Equal sld educational aide Sensory: Normal - Psychological Associated symptoms: Normal affect, Normal mood - Skin Skin Temperature: Warm Skin Moisture: Dry Skin Color: Normal Course - Re-evaluation Re-evalutation: 05/26/19 22:11 Patient reassessed just now. He is resting comfortably in the bed with no complaints. Vital signs are stable. Labs were reviewed and are unremarkable. Patient is receiving the thiamine. He can now tell me that is 2019 and he can tell me the month but says the day is the 13th. He is more oriented than arrival. I see no reason for further emergent evaluation or inpatient evaluation. I believe that he is capable of following up as an outpatient. He has no focal neurological deficits on exam. He has no neurological deficits other than some confusion. This confusion may have been possibly malingering or possibly due to some Korsakoff syndrome. I have called and spoke with the on the phone and instructed her that I feel patient needs to take thiamine orally. Needs to follow-up with his family physician and neurology. I will also restart the patient on Ativan. - Vital Signs Vital signs: Temp Pulse Resp BP Pulse Ox 98.2 F 90 27 H 140/91 H 99 05/26/19 18:28 05/26/19 18:28 05/26/19 20:01 05/26/19 20:01 05/26/19 20:01 - Laboratory Result Diagrams: 05/26/19 18:57 05/26/19 18:57 Laboratory results interpreted by me: 05/26/19 05/26/19 05/26/19 18:57 18:57 19:25 RBC 4.31 L MCHC 36.8 H Sodium 135.9 L Potassium 3.4 L Chloride 97 L Glucose 119 H Ammonia < 8.7 L Discharge - Discharge Clinical Impression: Confusion Condition: Stable Disposition: HOME, SELF-CARE Instructions: Altered Mental Status ([facility]) Additional Instructions: Please take your thiamine and ativan as instructed. Please call your primary doctor first thing in the am to arrange follow up. Please discuss neurology referral with your doctor. Prescriptions: Lorazepam [Ativan 0.5 mg Tablet] 0.5 mg PO BID #30 tab Thiamine HCl [Thiamine 100 mg Tablet] 100 mg PO DAILY #30 tablet Forms: Smoking Cessation Education Referrals: BECK JURADO MD [Primary Care Provider] - Follow up tomorrow
[2019-05-26 22:28] VITALS: BP 144/84
== END 2019-05-26 22:40 | disposition home or self-care (01) ==
LOC: ER 18:18
DX: R41.0 Disorientation, unspecified (principal); I10 Essential (primary) hypertension; F17.200 Nicotine dependence, unspecified, uncomplicated
CPT/HCPCS: 93005; 36415; 80307; 82140; 83735; 85025; 80053; 93010; J3490; J3411; J7050

== ENCOUNTER 2020-07-04 09:50 | Observation (INO) | payer MEDICAID ==
[2020-07-04] MEDS ORDERED: NORMAL SALINE 1000 ML 1,000 ML IV PRN (10:17)
[2020-07-04] MEDS ORDERED: LORAZEPAM INJ 2 MG/1 ML VIAL IV ONE (10:18)
--- NOTE | 2020-07-04 10:23 | ER Document Report ---
ED Neuro Symptoms/Deficit - General Chief Complaint: Altered Mental Status Stated Complaint: ALTERED MENTAL STATUS Time Seen by Provider: 07/04/20 10:08 Primary Care Provider: BECK JURADO MD [Primary Care Provider] - Follow up as needed Mode of Arrival: Medic Information source: Patient, Relative, Emergency Med Personnel Notes: 49-year-old male arrives by EMS after called because patient was out of Ativan for 4 days and was hallucinating reporting there was blood coming from the [place] of their house. Patient has been acting differently since the early a.m. hours. He is able to speak but is disoriented to who he is where he is at date time and situation. His Martha who works at [employer] advises she is the main breadwinner at this time because he has been out of work for several weeks. They have had to move because of financial reasons and are currently under a lot of stress. His was quite tearful when giving us the story at 1010. Both patient and smoke old Andreas menthol cigarettes. Around 1 pack/day. Patient's lactic acid was 4.6 per EMS. While in room patient advises he has no problems but is pulling on his thumb and pulling on his tubing to his blood pressure cuff. His also reports he has been unable to stand and had weakness in bilateral legs. She reports 4 years ago he was running out of his Ativan but had no similar symptoms like now but rather anxiousness and anxiety only. He also had a similar decrease in Ativan 1 year ago and had no symptoms like today. She reports he was tested for coronavirus 1 month ago. This was negative. TRAVEL OUTSIDE OF THE [place] IN LAST 30 DAYS: No - HPI Patient complains to provider of: Difficulty walking, Vision Changes, Weakness Onset: This morning Awoke with symptoms: Yes Symptoms are: Worse/persistent, Noted on awakening Duration: Continues in ED Quality of pain: No pain Severity: Moderate Pain Level: 3 Baseline Cognitive: Alert but confused Baseline Gait: Walks w/o assistance - Related Data Allergies/Adverse Reactions: No Known Drug Allergies Allergy (Verified 05/26/19 18:22) Past Medical History - General Information source: Patient, Relative - Social History Smoking Status: Current Every Day Smoker Cigarette use (# per day): Yes Chew tobacco use (# tins/day): No Smoking Education Provided: Yes Frequency of alcohol use: None Drug Abuse: None Lives with: Family Family History: Reviewed & Not Pertinent Patient has suicidal ideation: No Patient has homicidal ideation: No - Past Medical History Cardiac Medical History: Reports: Hx Hypercholesterolemia, Hx Hypertension Denies: Hx Coronary Artery Disease, Hx Heart Attack Neurological Medical History: Reports: Hx Seizures - Alcohol withdrawal Renal/ Medical History: Denies: Hx Peritoneal Dialysis Psychiatric Medical History: Reports: Hx Anxiety, Hx Depression Traumatic Medical History: Reports: Hx Traumatic Brain Injury - Immunizations Hx Diphtheria, Pertussis, Tetanus Vaccination: No Review of Systems - Review of Systems Constitutional: See HPI, Malaise, Weakness EENT: No symptoms reported Cardiovascular: No symptoms reported Respiratory: No symptoms reported Gastrointestinal: No symptoms reported Genitourinary: No symptoms reported Male Genitourinary: No symptoms reported Musculoskeletal: No symptoms reported Skin: No symptoms reported Hematologic/Lymphatic: No symptoms reported Neurological/Psychological: See HPI, Confusion, Anxiety, Hallucinations, Weakness Physical Exam - Vital signs Vitals: Pulse Ox 100 07/04/20 09:52 Interpretation: Hypertensive - General General appearance: Appears well, Alert - HEENT Head: Normocephalic, Atraumatic Eyes: Normal Pupils: PERRL - Respiratory Respiratory status: No respiratory distress Chest status: Nontender Breath sounds: Normal Chest palpation: Normal - Cardiovascular Rhythm: Regular Heart sounds: Normal auscultation Murmur: No - Abdominal Inspection: Normal Distension: No distension Bowel sounds: Normal Tenderness: Nontender Organomegaly: No organomegaly - Rectal Prostate: Other - deferred - Genitourinary Scrotum: Other - deferred - Back Back: Normal, Nontender - Extremities General upper extremity: Normal inspection, Nontender, Normal color, Normal ROM, Normal temperature General lower extremity: Normal inspection, Nontender, Normal color, Normal ROM, Normal temperature, Normal weight bearing. No: Wendi's sign - Neurological Neuro grossly intact: Yes Cognition: Normal Orientation: AAOx4 Elizabeth Coma Scale Eye Opening: Spontaneous Steele Coma Scale Verbal: Oriented Steele Coma Scale Motor: Obeys Commands Elizabeth Coma Scale Total: 15 Speech: Normal Motor strength normal: LUE, RUE, LLE, RLE Sensory: Normal - Psychological Associated symptoms: Normal affect, Normal mood - Skin Skin Temperature: Warm Skin Moisture: Dry Skin Color: Normal Course - Vital Signs Vital signs: Temp Pulse Resp BP Pulse Ox 98.9 F 86 15 140/82 H 100 07/04/20 10:20 07/04/20 10:22 07/04/20 10:22 07/04/20 10:22 07/04/20 10:22 - Laboratory Result Diagrams: 07/04/20 10:10 07/04/20 10:10 Laboratory results interpreted by me: 07/04/20 07/04/20 10:10 10:10 RBC 3.62 L Hgb 12.4 L Hct 32.4 L MCH 34.2 H MCHC 38.1 H Sodium 126.8 L Potassium 2.4 L* Chloride 91 L BUN 24 H Creatinine 1.36 H Est GFR (MDRD) Non-Af 56 L Glucose 115 H Calcium 8.2 L Total Protein 6.2 L Critical Care Note - Critical Care Note Comments: I spoke with Dr. Pineda at 1226 and he advises Crystal to answer for admission. I called her but she was busy and junior legal secretary staff answered for me. She will return call as soon as she is able. This is a 1231 Discharge - Discharge Clinical Impression: ETOH abuse, Hypokalemia, Benzodiazepine withdrawal with delirium Mental status alteration Qualifiers: Altered mental status type: unspecified Qualified Code(s): R41.82 - Altered mental status, unspecified Anxiety disorder Qualifiers: Anxiety disorder type: unspecified anxiety disorder Qualified Code(s): F41.9 - Anxiety disorder, unspecified Condition: Stable Disposition: ADMITTED INPATIENT Referrals: BECK JURADO MD [Primary Care Provider] - Follow up as needed
[2020-07-04 10:47] LABS: ALBUMIN 3.9 g/dL (3.5-5.0); ALKALINE PHOSPHATASE 68 U/L (38-126); ANION GAP 10 (5-19); ASPARTATE AMINO TRANSFERASE 23 U/L (17-59); BILIRUBIN,DIRECT 0.4 mg/dL (0.0-0.4); BILIRUBIN,TOTAL 0.4 mg/dL (0.2-1.3); BLOOD UREA NITROGEN 24 mg/dL (7-20); CALCIUM 8.2 mg/dL (8.4-10.2); CARBON DIOXIDE 26 mmol/L (22-30); CHLORIDE 91 mmol/L (98-107); GLUCOSE 115 mg/dL (75-110); TOTAL PROTEIN 6.2 g/dL (6.3-8.2)
[2020-07-04 10:50] LABS: POTASSIUM 2.4 mmol/L (3.6-5.0)
[2020-07-04 11:02] LABS: ABSOLUTE LYMPHOCYTES (AUTO) 0.7 10^3/uL (0.5-4.7); ABSOLUTE MONOCYTES (AUTO) 0.6 10^3/uL (0.1-1.4); ABSOLUTE NEUT (AUTO) 3.9 10^3/uL (1.7-8.2); BASOPHILS % (AUTO) 0.7 % (0-2); EOSINOPHILS % (AUTO) 0.8 % (0-6); HEMATOCRIT 32.4 % (37.9-51.0); HEMOGLOBIN 12.4 g/dL (13.5-17.0); LYMPHOCYTES % (AUTO) 13.9 % (13-45); MEAN CORPUSCULAR HEMOGLOBIN 34.2 pg (27.0-33.4); MEAN CORPUSCULAR VOLUME 90 fl (80-97); PLATELET COUNT 245 10^3/uL (150-450); RED BLOOD COUNT 3.62 10^6/uL (4.35-5.55); RED CELL DISTRIBUTION WIDTH 13.4 % (11.5-14.0); SEGMENTED NEUTROPHILS % (AUTO) 72.6 % (42-78); TOTAL CELLS COUNTED % (AUTO) 100 %; WHITE BLOOD COUNT 5.3 10^3/uL (4.0-10.5)
[2020-07-04 11:06] LABS: MEAN CORPUSCULAR HGB CONC 38.1 g/dL (32.0-36.0)
--- NOTE | 2020-07-04 11:06 | RADIOLOGY REPORT (SQ) ---
EXAM DESCRIPTION: CT HEAD WITHOUT IMAGES COMPLETED DATE/TIME: 07/04/2020 10:52 am REASON FOR STUDY: ms changes COMPARISON: None. TECHNIQUE: Axial images acquired through the brain without intravenous contrast. Images reviewed wi th bone, brain and subdural windows. Additional sagittal and coronal reconstructions were generated. Images stored on PACS. All CT scanners at this facility use dose modulation, iterative reconstruction, and/or weight based d osing when appropriate to reduce radiation dose to as low as reasonably achievable (ALARA). [facility]: Dose Right [facility]: CareDose [facility]: Dose Right [facility]: Teradose 4D [facility]: Comunitae RADIATION DOSE: CT Rad equipment meets quality standard of care and radiation dose reduction techniq ues were employed. CTDIvol: 18.9 - 50.1 mGy. DLP: 1534 mGy-cm. mGy. LIMITATIONS: None. FINDINGS: VENTRICLES: Normal size and contour. CEREBRUM: No masses. No hemorrhage. No midline shift. No evidence for acute infarction. Normal gra y/white matter differentiation. No areas of low density in the white matter. CEREBELLUM: Cerebellum is intact. There is subtle decreased attenuation in the left aspect of the po ns. Similar findings however present 2018. EXTRAAXIAL SPACES: No fluid collections. No masses. ORBITS AND GLOBE: No intra- or extraconal masses. Normal contour of globe without masses. CALVARIUM: No fracture. PARANASAL SINUSES: Small retention cyst or polyp in the right frontal sinus. SOFT TISSUES: No mass or hematoma. OTHER: No other significant finding. IMPRESSION: No acute findings. Findings are stable dating back to May 2019. If clinically in dicated further evaluation with MR may be beneficial. EVIDENCE OF ACUTE STROKE: NO. COMMENT: Quality ID # [id number]: Final reports with documentation of one or more dose reduction techniques (e.g., Automated exposure control, adjustment of the mA and/or kV according to patient size, use of iterative reconstruction technique) TECHNICAL DOCUMENTATION: JOB ID: [id number] 2010 [employer]- All Rights Reserved Reading location - IP/workstation name: [email or web address]
--- NOTE | 2020-07-04 11:22 | RADIOLOGY REPORT (SQ) ---
EXAM DESCRIPTION: CHEST SINGLE VIEW IMAGES COMPLETED DATE/TIME: 07/04/2020 11:05 am REASON FOR STUDY: ms changes COMPARISON: 05/19/2019 EXAM PARAMETERS: NUMBER OF VIEWS: One view. TECHNIQUE: Single frontal radiographic view of the chest acquired. RADIATION DOSE: NA LIMITATIONS: None. FINDINGS: LUNGS AND PLEURA: No opacities, masses or pneumothorax. No pleural effusion. MEDIASTINUM AND HILAR STRUCTURES: No masses. Contour normal. HEART AND VASCULAR STRUCTURES: Heart normal in size. Normal vasculature. BONES: No acute findings. HARDWARE: None in the chest. OTHER: No other significant finding. IMPRESSION: NO ACUTE RADIOGRAPHIC FINDING IN THE CHEST. TECHNICAL DOCUMENTATION: JOB ID: [id number] 2010 [employer] All Rights Reserved Reading location - IP/workstation name: [email or web address]
[2020-07-04] MEDS: POTASSI CL 20 MEQ/50 ML RIDER 20 MEQ/50 ML RTUPB IV SCH ×2 (11:27→13:10)
[2020-07-04] MEDS ORDERED: ALBUTEROL SULFATE 0.083% NEB 2.5 MG/3 ML AMPUL NEB PRN (12:55)
[2020-07-04] MEDS ORDERED: PROMETHAZINE HCL INJ 25 MG/1 ML VIAL IV PRN (12:55)
[2020-07-04] MEDS ORDERED: MAGNESIUM HYDROXIDE SUSP 30 ML UDCUP PO PRN (12:55)
[2020-07-04] MEDS ORDERED: MAG HYDROX/AL HYDROX/SIMETH SUSP 30 ML UDCUP PO PRN (12:55)
[2020-07-04] MEDS ORDERED: ONDANSETRON HCL INJ/PF 4 MG/2 ML SDV IV PRN (12:55)
[2020-07-04] MEDS ORDERED: LORAZEPAM INJ 2 MG/1 ML VIAL IV PRN ×2 (13:09)
[2020-07-04 13:19] LABS: APPEARANCE,URINE CLEAR; BILIRUBIN,URINE NEGATIVE (NEGATIVE); COLOR,URINE YELLOW; GLUCOSE, URINE 150 mg/dL (NEGATIVE); KETONES,URINE NEGATIVE (NEGATIVE); LEUKOCYTE ESTERASE,URINE TRACE (NEGATIVE); NITRITE,URINE NEGATIVE (NEGATIVE); PROTEIN,URINE NEGATIVE (NEGATIVE); URINE SPECIFIC GRAVITY 1.012; UROBILINOGEN,URINE NEGATIVE mg/dL (<2.0)
[2020-07-04 13:35] LABS: URINE AMPHETAMINES SCREEN NEGATIVE; URINE BARBITURATES SCREEN NEGATIVE; URINE COCAINE SCREEN NEGATIVE; URINE MARIJUANA (THC) SCREEN NEGATIVE; URINE METHADONE SCREEN NEGATIVE; URINE PHENCYCLIDINE SCREEN NEGATIVE
[2020-07-04 13:38] LABS: URINE BENZODIAZEPINES SCREEN UNCONFIRMED POSITIVE
[2020-07-04] MEDS: NORMAL SALINE 1000 ML 1,000 ML IV PRN (14:00)
--- NOTE | 2020-07-04 14:03 | PDOC H&P ---
History of Present Illness Admission Date/PCP: BECK JURADO Patient complains of: Hallucinations History of Present Illness: JOSE ROBERTO TRAVIS is a 49 year old male with a past medical history significant for Alcohol, benzodiazepine, opiates, and tobacco dependence all with continuous use, hypertension, and hyperlipidemia who presented to the emergency department today via EMS with report of 3 to 4 days of progressively worsening confusion and hallucinations. Patient's reports that the patient stopped drinking alcohol on ; he reportedly drinks one-half 5th bottle of whiskey daily (~25 ounces liquor daily). She also reports that the patient ran out of his benzodiazepines on Saturday when they were accidentally put in the wash; takes Ativan 1 mg 3 times daily. He also apparently ran out of his oxycodone yesterday; 10 mg twice daily. She denies any precipitating illness symptoms; specifically no fever, chills, chest pain, dyspnea, cough, nausea vomiting or diarrhea. Patient does appear to be comfortable and although he participates in the conversation, he is not able to provide details regarding his present illness. Evaluation in the emergency department revealed Mild hypertension, anemia (hemoglobin 12.4), hyponatremia (126.8), hypokalemia (2.4), acute kidney injury (CR 1.36/BUN 24, negative troponin, normal magnesium, negative urinalysis, and UDS positive for benzodiazepines. Serum alcohol is negative. Head CT and chest x-ray are benign. He is provided IV fluids and Ativan. He is referred to the hospitalist service for further evaluation management of the above-stated complaints and findings. Past Medical History Cardiac Medical History: Reports: Hyperlipidema, Hypertension Denies: Coronary Artery Disease, Myocardial Infarction Pulmonary Medical History: Reports: None EENT Medical History: Reports: None Neurological Medical History: Reports: Seizures - Alcohol withdrawal Endocrine Medical History: Reports: None Renal/ Medical History: Reports: None GI Medical History: Reports: None Psychiatric Medical History: Reports: Alcohol Dependency, Depression, Tobacco Dependency Traumatic Medical History: Reports: Traumatic Brain Injury Hematology: Reports: None Infectious Medical History: Reports: None Past Surgical History Past Surgical History: Reports: None Social History Information Source: Relative Lives with: Family Smoking Status: Current Every Day Smoker Cigarettes Packs Per Day: 0.5 Frequency of Alcohol Use: Heavy Hx Recreational Drug Use: No Drugs: None Hx Prescription Drug Abuse: No - Advance Directive Resuscitation Status: Full Code Family History Family History: Reviewed & Not Pertinent Parental Family History Reviewed: Yes Children Family History Reviewed: Yes Sibling(s) Family History Reviewed.: Yes Medication/Allergy Home Medications: Ibuprofen [Motrin 800 mg Tablet] 800 mg PO Q8HP PRN 05/19/19 Lisinopril/Hydrochlorothiazide [Zestoretic 20-25 mg Tablet] 1 tab PO DAILY 05/19/19 Lorazepam [Ativan 1 mg Tablet] 1 mg PO Q8HP PRN 05/19/19 Oxycodone HCl [Oxycodone HCl 10 MG Tablet] 10 mg PO Q8HP PRN 05/19/19 Sertraline HCl [Zoloft] 100 mg PO DAILY 05/19/19 Lorazepam [Ativan 0.5 mg Tablet] 0.5 mg PO BID #30 tab 05/26/19 Thiamine HCl [Thiamine 100 mg Tablet] 100 mg PO DAILY #30 tablet 05/26/19 Allergies/Adverse Reactions: No Known Drug Allergies Allergy (Verified 05/26/19 18:22) Review of Systems Constitutional: ABSENT: chills, fever(s), headache(s), weight gain, weight loss Eyes: ABSENT: visual disturbances Ears: ABSENT: hearing changes Cardiovascular: ABSENT: chest pain, dyspnea on exertion, edema, orthropnea, palpitations Respiratory: ABSENT: cough, hemoptysis Gastrointestinal: ABSENT: abdominal pain, constipation, diarrhea, hematemesis, hematochezia, nausea, vomiting Genitourinary: ABSENT: dysuria, hematuria Musculoskeletal: ABSENT: joint swelling Integumentary: ABSENT: rash, wounds Neurological: PRESENT: as per HPI, confusion. ABSENT: abnormal gait, abnormal speech, dizziness, focal weakness, syncope Psychiatric: PRESENT: as per HPI, hallucinations. ABSENT: anxiety, depression, homidical ideation, suicidal ideation Endocrine: ABSENT: cold intolerance, heat intolerance, polydipsia, polyuria Hematologic/Lymphatic: ABSENT: easy bleeding, easy bruising Physical Exam Vital Signs: Temp Pulse Resp BP Pulse Ox 98.9 F 86 15 112/72 100 07/04/20 10:20 07/04/20 10:22 07/04/20 10:22 07/04/20 13:03 07/04/20 10:22 Intake & Output 07/03/20 07/04/20 07/05/20 06:59 06:59 06:59 Intake Total 50 Balance 50 Weight 68.039 kg General appearance: PRESENT: no acute distress, cooperative, well-developed, well-nourished Head exam: PRESENT: atraumatic, normocephalic Eye exam: PRESENT: conjunctiva pink, EOMI, PERRLA. ABSENT: scleral icterus Ear exam: PRESENT: normal external ear exam Mouth exam: PRESENT: moist, tongue midline Respiratory exam: PRESENT: clear to auscultation ronnie, symmetrical, unlabored. ABSENT: rales, rhonchi, wheezes Cardiovascular exam: PRESENT: RRR, +S1. ABSENT: diastolic murmur, rubs, systolic murmur Pulses: PRESENT: normal dorsalis pedis pul Vascular exam: PRESENT: normal capillary refill GI/Abdominal exam: PRESENT: normal bowel sounds, soft. ABSENT: distended, guarding, mass, organolmegaly, rebound, tenderness Rectal exam: PRESENT: deferred Extremities exam: PRESENT: full ROM. ABSENT: calf tenderness, clubbing, pedal edema Neurological exam: PRESENT: alert, awake, oriented to person, oriented to place, CN II-XII grossly intact, other - Delirium. ABSENT: motor sensory deficit Psychiatric exam: PRESENT: appropriate affect, normal mood. ABSENT: homicidal ideation, suicidal ideation Skin exam: PRESENT: dry, intact, warm. ABSENT: cyanosis, rash Results Laboratory Results: 07/04/20 10:10 07/04/20 10:10 07/04/20 07/04/20 07/04/20 10:10 10:10 10:10 WBC 5.3 RBC 3.62 L Hgb 12.4 L Hct 32.4 L MCV 90 MCH 34.2 H MCHC 38.1 H RDW 13.4 Plt Count 245 Seg Neutrophils % 72.6 Sodium 126.8 L Potassium 2.4 L* Chloride 91 L Carbon Dioxide 26 Anion Gap 10 BUN 24 H Creatinine 1.36 H Est GFR ( Amer) > 60 Glucose 115 H Lactic Acid 1.3 Calcium 8.2 L Magnesium Total Bilirubin 0.4 AST 23 Alkaline Phosphatase 68 Total Protein 6.2 L Albumin 3.9 Urine Color Urine Appearance Urine pH Ur Specific [place] Urine Protein Urine Glucose (UA) Urine Ketones Urine Blood Urine Nitrite Ur Leukocyte Esterase Urine WBC (Auto) Urine RBC (Auto) 07/04/20 07/04/20 10:10 13:04 WBC RBC Hgb Hct MCV MCH MCHC RDW Plt Count Seg Neutrophils % Sodium Potassium Chloride Carbon Dioxide Anion Gap BUN Creatinine Est GFR ( Amer) Glucose Lactic Acid Calcium Magnesium 2.0 Total Bilirubin AST Alkaline Phosphatase Total Protein Albumin Urine Color YELLOW Urine Appearance CLEAR Urine pH 7.0 Ur Specific [place] 1.012 Urine Protein NEGATIVE Urine Glucose (UA) 150 H Urine Ketones NEGATIVE Urine Blood SMALL H Urine Nitrite NEGATIVE Ur Leukocyte Esterase TRACE H Urine WBC (Auto) 1 Urine RBC (Auto) 0 07/04/20 10:10 Troponin I < 0.012 Impressions: Chest X-Ray 07/04/20 10:16 IMPRESSION: NO ACUTE RADIOGRAPHIC FINDING IN THE CHEST. Head CT 07/04/20 10:17 IMPRESSION: No acute findings. Findings are stable dating back to May 2019. If clinically indicated further evaluation with MR may be beneficial. EVIDENCE OF ACUTE STROKE: NO. Assessment and Plan - Diagnosis (1) Acute metabolic encephalopathy Is this a current diagnosis for this admission?: Yes Plan: Multifactorial secondary to alcohol dependence with withdrawal, benzodiazepine dependence with withdrawal, and opiate dependence (possibly an early withdrawal) with associated CORY and electrolyte derangements. Patient is admitted to the medical floor on continuous cardiac telemetry. Supportive care. Specific management as outlined below. 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 Resume home dose Ativan 1 mg every 8 hours. Seizure precautions. (3) Alcohol dependence Qualifiers: Substance use status: in withdrawal Complication of substance-induced condition: with delirium Qualified Code(s): F10.231 - Alcohol dependence with withdrawal delirium Is this a current diagnosis for this admission?: Yes Plan: CIWA q2h with sliding scale Ativan IV potassium, magnesium, thiamine, and folic acid supplementation (banana bag). Fall, seizure, aspiration precautions. (4) Hypokalemia Is this a current diagnosis for this admission?: Yes Plan: Potassium 2.4; magnesium 2.0 IV and oral replacement. Follow-up chemistries. (5) Hyponatremia Is this a current diagnosis for this admission?: Yes Plan: Gentle IV fluids. Follow-up chemistry. (6) Acute kidney injury Is this a current diagnosis for this admission?: Yes Plan: Continue IV fluids. Avoid nephrotoxic medications as able. Follow-up chemistry. (7) Hypertension Qualifiers: Hypertension type: essential hypertension Qualified Code(s): I10 - Essential (primary) hypertension Is this a current diagnosis for this admission?: Yes Plan: Resume home medication regiment once reconciled. IV Lopressor as needed blood pressure. Cardiac diet (8) Opiate dependence Qualifiers: Substance use status: uncomplicated Qualified Code(s): F11.20 - Opioid dependence, uncomplicated Is this a current diagnosis for this admission?: Yes Plan: Verified on the [place] controlled substance database that the patient is prescribed oxycodone 10 mg #90/30 days. As the patient is currently admitted with acute metabolic encephalopathy, will continue half his normal dose. Oxycodone 5 mg every 8 hours. (9) Tobacco dependence Is this a current diagnosis for this admission?: Yes Plan: Smoking cessation encouraged. Nicotine replacement therapies provided. - Time Time Spent with patient: 35 or more minutes Medications reviewed and adjusted accordingly: Yes Anticipated Discharge Disposition: Home, Self Care Anticipated Discharge Timeframe: within 72 hours
[2020-07-04] MEDS ORDERED: LORAZEPAM 1 MG TABLET PO ONE (14:30)
[2020-07-04] MEDS ORDERED: POTASSIUM CHLORIDE 10 MEQ TABLET.ER PO ONE (14:30)
[2020-07-04] MEDS ORDERED: OXYCODONE HCL IR 5 MG TABLET PO ONE (14:30)
[2020-07-04 14:31] LABS: PROTHROMBIN TIME 12.4 SEC (11.4-15.4)
[2020-07-04 17:21] LABS: ANION GAP 9 (5-19); BLOOD UREA NITROGEN 22 mg/dL (7-20); CARBON DIOXIDE 29 mmol/L (22-30); CHLORIDE 90 mmol/L (98-107); GLUCOSE 136 mg/dL (75-110)
[2020-07-04 17:38] LABS: POTASSIUM 3.4 mmol/L (3.6-5.0)
[2020-07-04] MEDS: NORMAL SALINE 1000 ML 1,000 ML with POTASSIUM CHLORIDE 20 MEQ, MAGNESIUM SULFATE 8 MEQ,... IV SCH ×5 (18:40)
[2020-07-04] MEDS: FAMOTIDINE 20 MG TABLET PO SCH (21:51)
[2020-07-04] MEDS: LORAZEPAM 1 MG TABLET PO SCH (21:52)
[2020-07-05] MEDS: NORMAL SALINE 1000 ML 1,000 ML IV PRN ×2 (03:34→13:16)
[2020-07-05 06:21] LABS: HEMATOCRIT 26.9 % (37.9-51.0); MEAN CORPUSCULAR VOLUME 90 fl (80-97); PLATELET COUNT 211 10^3/uL (150-450); RED BLOOD COUNT 2.97 10^6/uL (4.35-5.55); RED CELL DISTRIBUTION WIDTH 13.4 % (11.5-14.0); WHITE BLOOD COUNT 4.5 10^3/uL (4.0-10.5)
[2020-07-05 06:22] LABS: MEAN CORPUSCULAR HGB CONC 37.6 g/dL (32.0-36.0)
[2020-07-05] MEDS: LORAZEPAM 1 MG TABLET PO SCH ×3 (06:24→21:55)
[2020-07-05 06:26] LABS: HEMOGLOBIN 10.1 g/dL (13.5-17.0)
[2020-07-05 06:37] LABS: ANION GAP 10 (5-19); BLOOD UREA NITROGEN 18 mg/dL (7-20); CALCIUM 8.4 mg/dL (8.4-10.2); CARBON DIOXIDE 22 mmol/L (22-30); CHLORIDE 100 mmol/L (98-107); GLUCOSE 110 mg/dL (75-110)
[2020-07-05] MEDS: OXYCODONE HCL IR 5 MG TABLET PO PRN ×2 (08:59→16:42)
[2020-07-05] MEDS: FAMOTIDINE 20 MG TABLET PO SCH ×2 (09:53→21:55)
[2020-07-05] MEDS: ENOXAPARIN SODIUM INJ 40 MG/0.4 ML DISP.SYRIN SUBCUT SCH (09:53)
[2020-07-05] MEDS: DOCUSATE SODIUM 100 MG CAPSULE PO SCH ×2 (09:53→10:04)
[2020-07-05] MEDS: LORAZEPAM INJ 2 MG/1 ML VIAL IV PRN (12:15)
[2020-07-05] MEDS: ACETAMINOPHEN 325 MG TABLET PO PRN (13:31)
--- NOTE | 2020-07-05 17:42 | PDOC PROGRESS REPORT ---
Subjective Subjective:: Per Previous Physician: "JOSE ROBERTO TRAVIS is a 49 year old male with a past medical history significant for Alcohol, benzodiazepine, opiates, and tobacco dependence all with continuous use, hypertension, and hyperlipidemia who presented to the emergency department today via EMS with report of 3 to 4 days of progressively worsening confusion and hallucinations. Patient's reports that the patient stopped drinking alcohol on ; he reportedly drinks one-half 5th bottle of whiskey daily (~25 ounces liquor daily). She also reports that the patient ran out of his benzodiazepines on Saturday when they were accidentally put in the wash; takes Ativan 1 mg 3 times daily. He also apparently ran out of his oxycodone yesterday; 10 mg twice daily. She denies any precipitating illness symptoms; specifically no fever, chills, chest pain, dyspnea, cough, nausea vomiting or diarrhea. Patient does appear to be comfortable and although he participates in the conversation, he is not able to provide details regarding his present illness. Evaluation in the emergency department revealed Mild hypertension, anemia (hemoglobin 12.4), hyponatremia (126.8), hypokalemia (2.4), acute kidney injury (CR 1.36/BUN 24, negative troponin, normal magnesium, negative urinalysis, and UDS positive for benzodiazepines. Serum alcohol is negative. Head CT and chest x-ray are benign. He is provided IV fluids and Ativan. He is referred to the hospitalist service for further evaluation management of the above-stated complaints and findings." 07/05/2020 Discussed course so far and the plan going forward at great length with the patient and his spouse. He wants to have his PCP or a psychiatrist taper him off of benzodiazepines. Sodium is higher than his norm essentially normal. Creatinine is the same at 1.36. Blood culture and urine culture pending but he does not appear toxic at all. Continue CIWA protocol. He has no new complaints. Reason For Visit: ALTERED MENTAL STATUS Physical Exam Vital Signs: Temp Pulse Resp BP Pulse Ox 98.8 F 86 16 92/51 L 97 07/05/20 15:55 07/05/20 15:55 07/05/20 15:55 07/05/20 15:55 07/05/20 15:55 Intake & Output 07/04/20 07/05/20 07/06/20 06:59 06:59 06:59 Intake Total 3003 1192 Balance 3003 1192 Weight 68 kg Exam: General appearance: PRESENT: no acute distress, well-developed, well-nourished, a bit anxious Head exam: PRESENT: atraumatic, normocephalic Eye exam: PRESENT: conjunctiva pink. ABSENT: scleral icterus Mouth exam: PRESENT: moist Respiratory exam: PRESENT: clear to auscultation ronnie. ABSENT: rales, rhonchi, wheezes Cardiovascular exam: PRESENT: RRR. ABSENT: diastolic murmur, rubs, systolic murmur GI/Abdominal exam: PRESENT: normal bowel sounds, soft. ABSENT: distended, guarding, mass, organolmegaly, rebound, tenderness Neurological exam: PRESENT: alert, awake, oriented to person, oriented to place, oriented to time, oriented to situation Psychiatric exam: PRESENT: appropriate affect, normal mood Skin exam: PRESENT: dry, intact, warm Results Laboratory Results: 07/05/20 05:18 07/05/20 05:18 07/04/20 07/05/20 07/05/20 16:51 05:18 05:18 WBC 4.5 RBC 2.97 L Hgb 10.1 L D Hct 26.9 L MCV 90 MCH 34.0 H MCHC 37.6 H RDW 13.4 Plt Count 211 Sodium 127.7 L 131.9 L Potassium 3.4 L D 4.0 Chloride 90 L 100 Carbon Dioxide 29 22 Anion Gap 9 10 BUN 22 H 18 Creatinine 1.27 H 1.36 H Est GFR ( Amer) > 60 > 60 Glucose 136 H 110 Calcium 9.0 8.4 07/04/20 10:10 Troponin I < 0.012 Impressions: Chest X-Ray 07/04/20 10:16 IMPRESSION: NO ACUTE RADIOGRAPHIC FINDING IN THE CHEST. Head CT 07/04/20 10:17 IMPRESSION: No acute findings. Findings are stable dating back to May 2019. If clinically indicated further evaluation with MR may be beneficial. EVIDENCE OF ACUTE STROKE: NO. 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 Resume home dose Ativan 1 mg every 8 hours. Seizure precautions." Ativan home dose continued (2) Anxiety disorder Qualifiers: Anxiety disorder type: unspecified anxiety disorder Qualified Code(s): F41.9 - Anxiety disorder, unspecified Is this a current diagnosis for this admission?: Yes Plan: Needs follow-up with psychiatry (3) Benzodiazepine withdrawal with delirium Is this a current diagnosis for this admission?: Yes (4) Hypokalemia Is this a current diagnosis for this admission?: Yes Plan: Per Previous Physician: "Potassium 2.4; magnesium 2.0 IV and oral replacement. Follow-up chemistries." Resolved (5) Acute metabolic encephalopathy Is this a current diagnosis for this admission?: Yes Plan: Per Previous Physician: "Multifactorial secondary to alcohol dependence with withdrawal, benzodiazepine dependence with withdrawal, and opiate dependence (possibly an early withdrawal) with associated CORY and electrolyte derangements. Patient is admitted to the medical floor on continuous cardiac telemetry. Supportive care. Specific management as outlined below." Resolved (6) Alcohol dependence Qualifiers: Substance use status: in withdrawal Complication of substance-induced condition: with delirium Qualified Code(s): F10.231 - Alcohol dependence with withdrawal delirium Is this a current diagnosis for this admission?: Yes Plan: Per Previous Physician: "CIWA q2h with sliding scale Ativan IV potassium, magnesium, thiamine, and folic acid supplementation (banana bag). Fall, seizure, aspiration precautions." Needs to stop drinking alcohol forever (7) Hypertension Qualifiers: Hypertension type: essential hypertension Qualified Code(s): I10 - Essential (primary) hypertension Is this a current diagnosis for this admission?: Yes Plan: Per Previous Physician: "Resume home medication regiment once reconciled. IV Lopressor as needed blood pressure. Cardiac diet" No indication for IV blood pressure meds, stop (8) Hyponatremia Is this a current diagnosis for this admission?: Yes Plan: Resolved (9) Opiate dependence Qualifiers: Substance use status: uncomplicated Qualified Code(s): F11.20 - Opioid dependence, uncomplicated Is this a current diagnosis for this admission?: Yes Plan: Per Previous Physician: "Verified on the [place] controlled substance database that the patient is prescribed oxycodone 10 mg #90/30 days. As the patient is currently admitted with acute metabolic encephalopathy, will continue half his normal dose. Oxycodone 5 mg every 8 hours." Narcotics dose continued at the same level (10) Tobacco dependence Is this a current diagnosis for this admission?: Yes Plan: Smoking cessation encouraged. Nicotine replacement therapies provided. - Time Time Spent with patient: 15-24 minutes Medications reviewed and adjusted accordingly: Yes Anticipated Discharge Disposition: Home, Self Care Anticipated Discharge Timeframe: within 72 hours - Inpatient Certification Based on my medical assessment, after consideration of the patient's comorbidities, presenting symptoms, or acuity I expect that the services needed warrant INPATIENT care.: Yes I certify that my determination is in accordance with my understanding of Medicare's requirements for reasonable and necessary INPATIENT services [42 CFR 412.3e].: Yes Medical Necessity: Significant Comorbidiites Make Outpatient Treatment Too Risky, Need Close Monitoring Due to Risk of Patient Decompensation, Risk of Complication if Not Cared For in Hospital, Risk of Diagnosis Which Will Require Inpatient Eval/Care/Monitoring
[2020-07-05] MEDS: NICOTINE 14 MG/24 HR PATCH.TD24 TD PRN (18:38)
[2020-07-05 19:17] LABS: APPEARANCE,URINE CLEAR; BILIRUBIN,URINE NEGATIVE (NEGATIVE); COLOR,URINE YELLOW; GLUCOSE, URINE >=500 mg/dL (NEGATIVE); KETONES,URINE NEGATIVE (NEGATIVE); PROTEIN,URINE NEGATIVE (NEGATIVE); URINE SPECIFIC GRAVITY 1.014
[2020-07-05] MEDS: NORMAL SALINE 1000 ML 1,000 ML with POTASSIUM CHLORIDE 20 MEQ, MAGNESIUM SULFATE 8 MEQ,... IV SCH ×5 (20:08)
[2020-07-06] MEDS: LORAZEPAM 1 MG TABLET PO SCH ×3 (05:25→22:30)
[2020-07-06] MEDS: OXYCODONE HCL IR 5 MG TABLET PO PRN ×2 (08:37→22:27)
[2020-07-06] MEDS: ENOXAPARIN SODIUM INJ 40 MG/0.4 ML DISP.SYRIN SUBCUT SCH (11:01)
[2020-07-06] MEDS: FAMOTIDINE 20 MG TABLET PO SCH ×2 (11:01→22:27)
[2020-07-06] MEDS: DOCUSATE SODIUM 100 MG CAPSULE PO SCH (11:01)
[2020-07-06] MEDS: LORAZEPAM INJ 2 MG/1 ML VIAL IV PRN (11:13)
[2020-07-06] MEDS: ACETAMINOPHEN 325 MG TABLET PO PRN (13:26)
--- NOTE | 2020-07-06 17:00 | PDOC PROGRESS REPORT ---
Subjective Subjective:: Per Previous Physician: "JOSE ROBERTO TRAVIS is a 49 year old male with a past medical history significant for Alcohol, benzodiazepine, opiates, and tobacco dependence all with continuous use, hypertension, and hyperlipidemia who presented to the emergency department today via EMS with report of 3 to 4 days of progressively worsening confusion and hallucinations. Patient's reports that the patient stopped drinking alcohol on ; he reportedly drinks one-half 5th bottle of whiskey daily (~25 ounces liquor daily). She also reports that the patient ran out of his benzodiazepines on Saturday when they were accidentally put in the wash; takes Ativan 1 mg 3 times daily. He also apparently ran out of his oxycodone yesterday; 10 mg twice daily. She denies any precipitating illness symptoms; specifically no fever, chills, chest pain, dyspnea, cough, nausea vomiting or diarrhea. Patient does appear to be comfortable and although he participates in the conversation, he is not able to provide details regarding his present illness. Evaluation in the emergency department revealed Mild hypertension, anemia (hemoglobin 12.4), hyponatremia (126.8), hypokalemia (2.4), acute kidney injury (CR 1.36/BUN 24, negative troponin, normal magnesium, negative urinalysis, and UDS positive for benzodiazepines. Serum alcohol is negative. Head CT and chest x-ray are benign. He is provided IV fluids and Ativan. He is referred to the hospitalist service for further evaluation management of the above-stated complaints and findings." 07/05/2020 Discussed course so far and the plan going forward at great length with the patient and his spouse. He wants to have his PCP or a psychiatrist taper him off of benzodiazepines. Sodium is higher than his norm essentially normal. Creatinine is the same at 1.36. Blood culture and urine culture pending but he does not appear toxic at all. Continue CIWA protocol. He has no new complaints. 07/06/2020 Patient still asking multiple questions about what to do with his musculoskeletal neck and shoulder pain. He states is been going on for a very long time but he has not seen an orthopedist about it. I again told him that he should get a referral from his PCP to see a traffic control specialist as we do not have 1 of those here. He is having some blood in his urine and he very likely has BPH. Started Flomax. Patient states he has some chronic problems getting the urine out of his bladder. He needs follow-up with urology and I discussed this with the patient who agrees to make this appointment. Could potentially be discharged tomorrow if hematuria resolves and he has no further withdrawal symptoms. Reason For Visit: ALTERED MENTAL STATUS Physical Exam Vital Signs: Temp Pulse Resp BP Pulse Ox 98.0 F 79 16 140/82 H 100 07/06/20 12:51 07/06/20 12:51 07/06/20 12:51 07/06/20 12:51 07/06/20 12:51 Intake & Output 07/05/20 07/06/20 07/07/20 06:59 06:59 06:59 Intake Total 3003 3265 Balance 3003 3265 Weight 68 kg 68 kg Exam: General appearance: PRESENT: no acute distress, well-developed, well-nourished, a bit anxious same as before Head exam: PRESENT: atraumatic, normocephalic Eye exam: PRESENT: conjunctiva pink. ABSENT: scleral icterus Mouth exam: PRESENT: moist Respiratory exam: PRESENT: clear to auscultation ronnie. ABSENT: rales, rhonchi, wheezes Cardiovascular exam: PRESENT: RRR. ABSENT: diastolic murmur, rubs, systolic murmur GI/Abdominal exam: PRESENT: normal bowel sounds, soft. ABSENT: distended, guarding, mass, organolmegaly, rebound, tenderness Neurological exam: PRESENT: alert, awake, oriented to person, oriented to place, oriented to time, oriented to situation Psychiatric exam: PRESENT: appropriate affect, normal mood Skin exam: PRESENT: dry, intact, warm Results Laboratory Results: 07/05/20 05:18 07/05/20 05:18 07/05/20 18:25 Urine Color YELLOW Urine Appearance CLEAR Urine pH 7.0 Ur Specific [place] 1.014 Urine Protein NEGATIVE Urine Glucose (UA) >=500 H Urine Ketones NEGATIVE Urine Blood SMALL H Urine RBC (Auto) 9 07/04/20 13:04 Clean Catch Midstream Urine Culture - Final Mixed Urogenital Joi 07/04/20 10:10 Troponin I < 0.012 Impressions: Chest X-Ray 07/04/20 10:16 IMPRESSION: NO ACUTE RADIOGRAPHIC FINDING IN THE CHEST. Head CT 07/04/20 10:17 IMPRESSION: No acute findings. Findings are stable dating back to May 2019. If clinically indicated further evaluation with MR may be beneficial. EVIDENCE OF ACUTE STROKE: NO. 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 Resume home dose Ativan 1 mg every 8 hours. Seizure precautions." Ativan home dose continued Improved (2) Anxiety disorder Qualifiers: Anxiety disorder type: unspecified anxiety disorder Qualified Code(s): F41.9 - Anxiety disorder, unspecified Is this a current diagnosis for this admission?: Yes Plan: Needs follow-up with psychiatry (3) Benzodiazepine withdrawal with delirium Is this a current diagnosis for this admission?: Yes (4) Hypokalemia Is this a current diagnosis for this admission?: Yes (5) Acute metabolic encephalopathy Is this a current diagnosis for this admission?: Yes (6) Alcohol dependence Qualifiers: Substance use status: in withdrawal Complication of substance-induced condition: with delirium Qualified Code(s): F10.231 - Alcohol dependence with withdrawal delirium Is this a current diagnosis for this admission?: Yes Plan: Per Previous Physician: "CIWA q2h with sliding scale Ativan IV potassium, magnesium, thiamine, and folic acid supplementation (banana bag). Fall, seizure, aspiration precautions." Needs to stop drinking alcohol forever Withdrawal resolving (7) Hypertension Qualifiers: Hypertension type: essential hypertension Qualified Code(s): I10 - Essential (primary) hypertension Is this a current diagnosis for this admission?: Yes (8) Hyponatremia Is this a current diagnosis for this admission?: Yes (9) Opiate dependence Qualifiers: Substance use status: uncomplicated Qualified Code(s): F11.20 - Opioid dependence, uncomplicated Is this a current diagnosis for this admission?: Yes (10) Tobacco dependence Is this a current diagnosis for this admission?: Yes (11) BPH (benign prostatic hyperplasia) Qualifiers: Lower urinary tract symptom presence: symptoms present Lower urinary tract symptom detail: urinary hesitancy Qualified Code(s): N40.1 - Benign prostatic hyperplasia with lower urinary tract symptoms; R39.11 - Hesitancy of micturition Is this a current diagnosis for this admission?: Yes Plan: Flomax started Needs follow-up with urology outpatient, we do not have urology here Having some mild hematuria - Time Time Spent with patient: 25-34 minutes Medications reviewed and adjusted accordingly: Yes Anticipated Discharge Disposition: Home, Self Care Anticipated Discharge Timeframe: within 24 hours - Inpatient Certification Based on my medical assessment, after consideration of the patient's comorbidities, presenting symptoms, or acuity I expect that the services needed warrant INPATIENT care.: Yes I certify that my determination is in accordance with my understanding of Medicare's requirements for reasonable and necessary INPATIENT services [42 CFR 412.3e].: Yes Medical Necessity: Significant Comorbidiites Make Outpatient Treatment Too Risky, Need Close Monitoring Due to Risk of Patient Decompensation, Risk of Complication if Not Cared For in Hospital, Risk of Diagnosis Which Will Require Inpatient Eval/Care/Monitoring
[2020-07-06] MEDS: NORMAL SALINE 1000 ML 1,000 ML with POTASSIUM CHLORIDE 20 MEQ, MAGNESIUM SULFATE 8 MEQ,... IV SCH ×5 (17:17)
[2020-07-06] MEDS ORDERED: TAMSULOSIN HCL 0.4 MG CAP.SR.24H PO SCH (18:00)
[2020-07-06] MEDS: NICOTINE 14 MG/24 HR PATCH.TD24 TD PRN (22:25)
[2020-07-07] MEDS ORDERED: MELATONIN 5 MG TABLET PO PRN (03:40)
[2020-07-07] MEDS: LORAZEPAM INJ 2 MG/1 ML VIAL IV PRN ×2 (04:02→10:00)
[2020-07-07] MEDS: ACETAMINOPHEN 325 MG TABLET PO PRN ×2 (04:07→09:59)
[2020-07-07] MEDS: LORAZEPAM 1 MG TABLET PO SCH ×2 (06:07→13:26)
[2020-07-07 07:23] LABS: ANION GAP 9 (5-19); BLOOD UREA NITROGEN 8 mg/dL (7-20); CARBON DIOXIDE 19 mmol/L (22-30); CHLORIDE 109 mmol/L (98-107); GLUCOSE 99 mg/dL (75-110); POTASSIUM 4.5 mmol/L (3.6-5.0)
[2020-07-07] MEDS: FAMOTIDINE 20 MG TABLET PO SCH (09:46)
[2020-07-07] MEDS: DOCUSATE SODIUM 100 MG CAPSULE PO SCH (09:46)
[2020-07-07] MEDS: ENOXAPARIN SODIUM INJ 40 MG/0.4 ML DISP.SYRIN SUBCUT SCH (09:47)
[2020-07-07] MEDS: OXYCODONE HCL IR 5 MG TABLET PO PRN (10:00)
--- NOTE | 2020-07-07 15:08 | PDOC DISCHARGE SUMMARY ---
Impression - Admit/DC Date/PCP Admission Date/Primary Care Provider: 07/04/20 12:55 BECK JURADO Discharge Date: 07/07/20 - Discharge Diagnosis (1) Benzodiazepine withdrawal Is this a current diagnosis for this admission?: Yes (2) Anxiety disorder Is this a current diagnosis for this admission?: Yes (3) Benzodiazepine withdrawal with delirium Is this a current diagnosis for this admission?: Yes (4) Hypokalemia Is this a current diagnosis for this admission?: Yes (5) Acute metabolic encephalopathy Is this a current diagnosis for this admission?: Yes (6) Alcohol dependence Is this a current diagnosis for this admission?: Yes (7) Hypertension Is this a current diagnosis for this admission?: Yes (8) Hyponatremia Is this a current diagnosis for this admission?: Yes (9) Opiate dependence Is this a current diagnosis for this admission?: Yes (10) Tobacco dependence Is this a current diagnosis for this admission?: Yes (11) BPH (benign prostatic hyperplasia) Is this a current diagnosis for this admission?: Yes - Additional Information Resuscitation Status: Full Code Discharge Diet: As Tolerated, Regular Discharge Activity: Activity As Tolerated, Balance Activity w/Rest Referrals: BECK JURADO MD [Primary Care Provider] - Follow up as needed Prescriptions: Lorazepam [Ativan 1 mg Tablet] 1 mg PO Q8HP PRN #6 tablet PRN Reason: Anxiety Tamsulosin HCl [Flomax 0.4 mg Cap.sr] 0.4 mg PO PCSUPPER #30 cap.sr.24h Nicotine [Nicoderm 14 mg/24 Hr Transdermal Patch] 1 each TD DAILYP PRN #30 patch.td24 PRN Reason: Oxycodone HCl [Oxy-Ir 5 mg Tablet] 5 mg PO Q8HP PRN #6 tablet PRN Reason: Home Medications: Thiamine HCl [Thiamine 100 mg Tablet] 100 mg PO DAILY #30 tablet 05/26/19 Tizanidine HCl [Zanaflex 4 mg Tablet] 4 mg PO QHS 07/04/20 Lorazepam [Ativan 1 mg Tablet] 1 mg PO Q8HP PRN #6 tablet 07/07/20 Nicotine [Nicoderm 14 mg/24 Hr Transdermal Patch] 1 each TD DAILYP PRN #30 patch.td24 07/07/20 Oxycodone HCl [Oxy-Ir 5 mg Tablet] 5 mg PO Q8HP PRN #6 tablet 07/07/20 Tamsulosin HCl [Flomax 0.4 mg Cap.sr] 0.4 mg PO PCSUPPER #30 cap.sr.24h 07/07/20 History of Present Illiness History of Present Illness: Per Previous Physician: "JOSE ROBERTO TRAVIS is a 49 year old male with a past medical history significant for Alcohol, benzodiazepine, opiates, and tobacco dependence all with continuous use, hypertension, and hyperlipidemia who presented to the emerg ency department today via EMS with report of 3 to 4 days of progressively worsening confusion and hallucinations. Patient's reports that the patient stopped drinking alcohol on ; he reportedly drinks one-half 5th bottle of whiskey daily (~25 ounces liquor daily). She also reports that the patient ran out of his benzodiazepines on Saturday when they were accidentally put in the wash; takes Ativan 1 mg 3 times daily. He also apparently ran out of his oxycodone yesterday; 10 mg twice daily. She denies any precipitating illness symptoms; specifically no fever, chills, chest pain, dyspnea, cough, nausea vomiting or diarrhea. Patient does appear to be comfortable and although he participates in the conversation, he is not able to provide details regarding his present illness. Evaluation in the emergency department revealed Mild hypertension, anemia (hemoglobin 12.4), hyponatremia (126.8), hypokalemia (2.4), acute kidney injury (CR 1.36/BUN 24, negative troponin, normal magnesium, negative urinalysis, and UDS positive for benzodiazepines. Serum alcohol is negative. Head CT and chest x-ray are benign. He is provided IV fluids and Ativan. He is referred to the hospitalist service for further evaluation management of the above-stated complaints and findings." Hospital Course Hospital Course: Per Previous Physician: "JOSE ROBERTO TRAVIS is a 49 year old male with a past medical history significant for Alcohol, benzodiazepine, opiates, and tobacco dependence all with continuous use, hypertension, and hyperlipidemia who presented to the emergency department today via EMS with report of 3 to 4 days of progressively worsening confusion and hallucinations. Patient's reports that the patient stopped drinking alcohol on ; he reportedly drinks one-half 5th bottle of whiskey daily (~25 ounces liquor daily). She also reports that the patient ran out of his benzodiazepines on Saturday when they were accidentally put in the wash; takes Ativan 1 mg 3 times daily. He also apparently ran out of his oxycodone yesterday; 10 mg twice daily. She denies any precipitating illness symptoms; specifically no fever, chills, chest pain, dyspnea, cough, nausea vomiting or diarrhea. Patient does appear to be comfortable and although he participates in the conversation, he is not able to provide details regarding his present illness. Evaluation in the emergency department revealed Mild hypertension, anemia (hemoglobin 12.4), hyponatremia (126.8), hypokalemia (2.4), acute kidney injury (CR 1.36/BUN 24, negative troponin, normal magnesium, negative urinalysis, and UDS positive for benzodiazepines. Serum alcohol is negative. Head CT and chest x-ray are benign. He is provided IV fluids and Ativan. He is referred to the hospitalist service for further evaluation management of the above-stated complaints and findings." 07/05/2020 Discussed course so far and the plan going forward at great length with the patient and his spouse. He wants to have his PCP or a psychiatrist taper him off of benzodiazepines. Sodium is higher than his norm essentially normal. Creatinine is the same at 1.36. Blood culture and urine culture pending but he does not appear toxic at all. Continue CIWA protocol. He has no new complaints. 07/06/2020 Patient still asking multiple questions about what to do with his musculoskeletal neck and shoulder pain. He states is been going on for a very long time but he has not seen an orthopedist about it. I again told him that he should get a referral from his PCP to see a airways operations specialist as we do not have 1 of those here. He is having some blood in his urine and he very likely has BPH. Started Flomax. Patient states he has some chronic problems getting the urine out of his bladder. He needs follow-up with urology and I discussed this with the patient who agrees to make this appointment. Could potentially be discharged tomorrow if hematuria resolves and he has no further withdrawal symptoms. On day of discharge, patient feels very well, approximately back to baseline. He has not had any seizure activity or significant withdrawal symptoms overnight. He will be given a very small amount of his home dose benzodiazepine and narcotic to get him to his PCP appointment tomorrow. He will not have any refills. His PCP can choose to continue these medications as he sees fit. I recommended that the patient follow-up with psychiatry and urology as well. Patient very likely has BPH and I treated him with Flomax with significant improvement. Patient has some chronic neck and shoulder pain which I recommended he get a referral to PT from his PCP. 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 Resume home dose Ativan 1 mg every 8 hours. Seizure precautions." Ativan home dose continued Improved (2) Anxiety disorder Qualifiers: Anxiety disorder type: unspecified anxiety disorder Qualified Code(s): F41.9 - Anxiety disorder, unspecified Is this a current diagnosis for this admission?: Yes Plan: Needs follow-up with psychiatry (3) Benzodiazepine withdrawal with deliriumresolved Is this a current diagnosis for this admission?: Yes (4) Hypokalemiaresolved Is this a current diagnosis for this admission?: Yes (5) Acute metabolic encephalopathyresolved Is this a current diagnosis for this admission?: Yes (6) Alcohol withdrawal and dependenceresolved Qualifiers: Substance use status: in withdrawal Complication of substance-induced condition: with delirium Qualified Code(s): F10.231 - Alcohol dependence with withdrawal delirium Is this a current diagnosis for this admission?: Yes Plan: Per Previous Physician: "CIWA q2h with sliding scale Ativan IV potassium, magnesium, thiamine, and folic acid supplementation (banana bag). Fall, seizure, aspiration precautions." Needs to stop drinking alcohol forever Withdrawal resolved (7) Hypertension Qualifiers: Hypertension type: essential hypertension Qualified Code(s): I10 - Essential (primary) hypertension Is this a current diagnosis for this admission?: Yes (8) Hyponatremiaresolved Is this a current diagnosis for this admission?: Yes Most likely due to SSRI which has been stopped combined with beer Potomania (9) Opiate dependence Qualifiers: Substance use status: uncomplicated Qualified Code(s): F11.20 - Opioid dependence, uncomplicated Is this a current diagnosis for this admission?: Yes (10) Tobacco dependence Is this a current diagnosis for this admission?: Yes (11) BPH (benign prostatic hyperplasia)resolved Qualifiers: Lower urinary tract symptom presence: symptoms present Lower urinary tract symptom detail: urinary hesitancy Qualified Code(s): N40.1 - Benign prostatic hyperplasia with lower urinary tract symptoms; R39.11 - Hesitancy of micturition Is this a current diagnosis for this admission?: Yes Plan: Flomax started Needs follow-up with urology outpatient, we do not have urology here Having some mild hematuria Physical Exam Vital Signs: Temp Pulse Resp BP Pulse Ox 98.5 F 86 16 118/76 100 07/07/20 11:17 07/07/20 11:17 07/07/20 11:17 07/07/20 11:17 07/07/20 11:17 Intake & Output 07/06/20 07/07/20 07/08/20 06:59 06:59 06:59 Intake Total 3265 2263 480 Balance 3265 2263 480 Weight 68 kg 68 kg Exam: General appearance: PRESENT: no acute distress, well-developed, well-nourished, states he feels well and would like to go home Head exam: PRESENT: atraumatic, normocephalic Eye exam: PRESENT: conjunctiva pink. ABSENT: scleral icterus Mouth exam: PRESENT: moist Respiratory exam: PRESENT: clear to auscultation ronnie. ABSENT: rales, rhonchi, wheezes Cardiovascular exam: PRESENT: RRR. ABSENT: diastolic murmur, rubs, systolic murmur GI/Abdominal exam: PRESENT: normal bowel sounds, soft. ABSENT: distended, guarding, mass, organolmegaly, rebound, tenderness Neurological exam: PRESENT: alert, awake, oriented to person, oriented to place, oriented to time, oriented to situation Psychiatric exam: PRESENT: appropriate affect, normal mood Skin exam: PRESENT: dry, intact, warm Results Laboratory Results: WBC 4.5 10^3/uL (4.0-10.5) 07/05/20 05:18 RBC 2.97 10^6/uL (4.35-5.55) L 07/05/20 05:18 Hgb 10.1 g/dL (13.5-17.0) L D 07/05/20 05:18 Hct 26.9 % (37.9-51.0) L 07/05/20 05:18 MCV 90 fl (80-97) 07/05/20 05:18 MCH 34.0 pg (27.0-33.4) H 07/05/20 05:18 MCHC 37.6 g/dL (32.0-36.0) H 07/05/20 05:18 RDW 13.4 % (11.5-14.0) 07/05/20 05:18 Plt Count 211 10^3/uL (150-450) 07/05/20 05:18 Lymph % (Auto) 13.9 % (13-45) 07/04/20 10:10 [place] % (Auto) 12.0 % (3-13) 07/04/20 10:10 Eos % (Auto) 0.8 % (0-6) 07/04/20 10:10 Baso % (Auto) 0.7 % (0-2) 07/04/20 10:10 Absolute Neuts (auto) 3.9 10^3/uL (1.7-8.2) 07/04/20 10:10 Absolute Lymphs (auto) 0.7 10^3/uL (0.5-4.7) 07/04/20 10:10 Absolute Monos (auto) 0.6 10^3/uL (0.1-1.4) 07/04/20 10:10 Absolute Eos (auto) 0.0 10^3/uL (0.0-0.6) 07/04/20 10:10 Absolute Basos (auto) 0.0 10^3/uL (0.0-0.2) 07/04/20 10:10 Seg Neutrophils % 72.6 % (42-78) 07/04/20 10:10 PT 12.4 SEC (11.4-15.4) 07/04/20 10:10 INR 0.90 07/04/20 10:10 D-Dimer 0.28 ug/mL (0.00-0.50) 07/04/20 10:10 Sodium 136.5 mmol/L (137-145) L 07/07/20 06:03 Potassium 4.5 mmol/L (3.6-5.0) 07/07/20 06:03 Chloride 109 mmol/L (98-107) H 07/07/20 06:03 Carbon Dioxide 19 mmol/L (22-30) L 07/07/20 06:03 Anion Gap 9 (5-19) 07/07/20 06:03 BUN 8 mg/dL (7-20) 07/07/20 06:03 Creatinine 1.11 mg/dL (0.52-1.25) 07/07/20 06:03 Est GFR ( Amer) > 60 (>60) 07/07/20 06:03 Est GFR (MDRD) Non-Af > 60 (>60) 07/07/20 06:03 Glucose 99 mg/dL (75-110) 07/07/20 06:03 Hemoglobin A1c % 4.4 % (4.7-6.0) L 07/07/20 06:03 Lactic Acid 1.3 mmol/L (0.7-2.1) 07/04/20 10:10 Calcium 8.0 mg/dL (8.4-10.2) L 07/07/20 06:03 Magnesium 2.0 mg/dL (1.6-2.3) 07/04/20 10:10 Total Bilirubin 0.4 mg/dL (0.2-1.3) 07/04/20 10:10 Direct Bilirubin 0.4 mg/dL (0.0-0.4) 07/04/20 10:10 Neonat Total Bilirubin Not Reportable 07/04/20 10:10 Neonat Direct Bilirubin Not Reportable 07/04/20 10:10 Neonat Indirect Bili Not Reportable 07/04/20 10:10 AST 23 U/L (17-59) 07/04/20 10:10 ALT 13 U/L (<50) 07/04/20 10:10 Alkaline Phosphatase 68 U/L (38-126) 07/04/20 10:10 Troponin I < 0.012 ng/mL 07/04/20 10:10 Total Protein 6.2 g/dL (6.3-8.2) L 07/04/20 10:10 Albumin 3.9 g/dL (3.5-5.0) 07/04/20 10:10 Urine Color YELLOW 07/05/20 18:25 Urine Appearance CLEAR 07/05/20 18:25 Urine pH 7.0 (5.0-9.0) 07/05/20 18:25 Ur Specific [place] 1.014 07/05/20 18:25 Urine Protein NEGATIVE mg/dL (NEGATIVE) 07/05/20 18:25 Urine Glucose (UA) >=500 mg/dL (NEGATIVE) H 07/05/20 18:25 Urine Ketones NEGATIVE mg/dL (NEGATIVE) 07/05/20 18:25 Urine Blood SMALL (NEGATIVE) H 07/05/20 18:25 Urine Nitrite NEGATIVE (NEGATIVE) 07/04/20 13:04 Urine Nitrite (Reflex) NEGATIVE (NEGATIVE) 07/05/20 18:25 Urine Bilirubin NEGATIVE (NEGATIVE) 07/05/20 18:25 Urine Urobilinogen 2.0 mg/dL (<2.0) H 07/05/20 18:25 Ur Leukocyte Esterase TRACE (NEGATIVE) H 07/04/20 13:04 Leukocyte Esterase Rfl NEGATIVE (NEGATIVE) 07/05/20 18:25 Urine WBC (Auto) 1 /HPF 07/04/20 13:04 Urine RBC (Auto) 9 /HPF 07/05/20 18:25 Urine Bacteria (Auto) TRACE /HPF 07/05/20 18:25 Urine WBC (Reflex) 2 /HPF 07/05/20 18:25 Squamous Epi Cells Auto <1 /HPF 07/04/20 13:04 Urine Mucus (Auto) RARE /LPF 07/05/20 18:25 Urine Ascorbic Acid NEGATIVE (NEGATIVE) 07/05/20 18:25 Urine Opiates Screen NEGATIVE 07/04/20 13:04 Urine Methadone Screen NEGATIVE 07/04/20 13:04 Ur Barbiturates Screen NEGATIVE 07/04/20 13:04 Ur Phencyclidine Scrn NEGATIVE 07/04/20 13:04 Ur Amphetamines Screen NEGATIVE 07/04/20 13:04 U Benzodiazepines Scrn UNCONFIRMED POSITIVE 07/04/20 13:04 Urine Cocaine Screen NEGATIVE 07/04/20 13:04 U Marijuana (THC) Screen NEGATIVE 07/04/20 13:04 Serum Alcohol < 10 mg/dL (NONE DETECTED) 07/04/20 10:10 07/04/20 10:10 Troponin I < 0.012 Impressions: Chest X-Ray 07/04/20 10:16 IMPRESSION: NO ACUTE RADIOGRAPHIC FINDING IN THE CHEST. Head CT 07/04/20 10:17 IMPRESSION: No acute findings. Findings are stable dating back to May 2019. If clinically indicated further evaluation with MR may be beneficial. EVIDENCE OF ACUTE STROKE: NO. Plan Plan of Treatment: Follow-up with PCP Follow-up with urology Follow-up with psychiatry Time Spent: Greater than 30 Minutes Stroke Is this a Stroke Patient?: No Acute Heart Failure Is this a Heart Failure Patient?: No
[2020-07-07 15:20] VITALS: BP 112/64
== END 2020-07-07 17:00 | disposition home or self-care (01) ==
LOC: ER 09:50 → EH 12:55 → 4W 18:16
PROVIDERS: ADMIT Internal Medicine; ATTEND Internal Medicine
DX: F13.231 Sedative, hypnotic or anxiolytic dependence with withdrawal delirium (principal); E87.6 Hypokalemia; N17.9 Acute kidney failure, unspecified; G93.41 Metabolic encephalopathy; F41.9 Anxiety disorder, unspecified; I10 Essential (primary) hypertension; F10.231 Alcohol dependence with withdrawal delirium; E87.1 Hypo-osmolality and hyponatremia; F11.20 Opioid dependence, uncomplicated; N40.1 Benign prostatic hyperplasia with lower urinary tract symptoms; R39.11 Hesitancy of micturition; E78.5 Hyperlipidemia, unspecified; Z79.899 Other long term (current) drug therapy; F17.210 Nicotine dependence, cigarettes, uncomplicated
CPT/HCPCS: 99285; 96361; 96375; 96365; 36415 ×3; 87040; 87086; 80307 ×2; 83605; 83735; 85025; 85027; 85610; 80048 ×2; 80053; 81001 ×2; 84484; 83036; 85379; 87150 ×26; 71045; 70450; G0378 ×4; J3490 ×19; J3475 ×3; J1650; J2060 ×4; J3480 ×4; J3411 ×3; J2405; J7030 ×3